=== PATIENT | female | born 1995 | race Caucasian/White ===

== ENCOUNTER 2019-09-12 17:57 | Emergency (ER) | payer BC ==
--- NOTE | 2019-09-12 18:24 | EDM.PDOC ---
ED HPI GENERAL MEDICAL PROBLEM - General Chief Complaint: Neuro Symptoms/Deficits Stated Complaint: facial tingling Time Seen by Provider: 09/12/19 18:03 Source of Information: Reports: Patient History Limitations: Reports: No Limitations - History of Present Illness INITIAL COMMENTS - FREE TEXT/NARRATIVE: She presents to the emergency department complaining of shortness of breath and tingling in her face. She feels like she just is not getting enough air. She denies cough at this time. She is breathing comfortably. No chest pain or tightness. 3 days ago she was seen by her primary provider with some complaints of cough and shortness of breath and was given an albuterol inhaler. She states she has only used it 3 times. She reports that the cough has resolved. She did feel feverish 3 days ago but none since then. Also had some sore throat which has resolved. No exposures to covid 19 that she is aware of. No travel out of the area. She is also complaining of tingling diffusely in her face. This started about an hour prior to arrival and has since resolved. She had additional some twitching in her left eye as well. No weakness. No speech difficulties. No difficulty understanding. No history of previous similar problems. - Related Data Allergies Allergy/AdvReac Type Severity Reaction Status Date / Time aspirin Allergy Nausea and Verified 09/12/19 17:59 Vomiting Home Meds: Home Meds Albuterol Sulfate [Albuterol Sulfate Hfa] 2 puff INH Q4HR PRN 09/12/19 [History] Benzonatate [Tessalon Perle] 100 mg PO Q4HR PRN 09/12/19 [History] Lisinopril [Zestril] 10 mg PO DAILY 09/12/19 [History] ED ROS GENERAL - Review of Systems Review Of Systems: See Below Constitutional: Denies: Fever, Chills HEENT: Denies: Eye Pain, Hearing Loss, Sinus Problem, Throat Pain Respiratory: Reports: Shortness of Breath. Denies: Wheezing, Cough Cardiovascular: Denies: Chest Pain, Palpitations Endocrine: Denies: Fatigue GI/Abdominal: Denies: Abdominal Pain, Diarrhea, Nausea, Vomiting : Denies: Dysuria, Frequency, Urgency Neurological: Reports: Numbness, Tingling. Denies: Confusion, Dizziness, Headache, Syncope, Trouble Speaking, Difficulty Walking, Weakness, Change in Speech Psychiatric: Denies: Anxiety, Confusion ED EXAM, GENERAL - Physical Exam Exam: See Below Exam Limited By: No Limitations General Appearance: Alert, WD/WN, No Apparent Distress Eye Exam: Bilateral Eye: EOMI, PERRL Ears: Normal External Exam, Normal Canal, Hearing Grossly Normal, Normal TMs Nose: Normal Inspection, No Blood Throat/Mouth: Normal Inspection, Normal Voice, No Airway Compromise Head: Atraumatic, Normocephalic Neck: Normal Inspection, Non-Tender Respiratory/Chest: No Respiratory Distress, Lungs Clear, Normal Breath Sounds, No Accessory Muscle Use Cardiovascular: Regular Rate, Rhythm, No Murmur Neurological: Alert, Oriented, CN II-XII Intact, Normal Cognition, Normal Gait, No Motor/Sensory Deficits, Other (Normal cerebellar function.) Skin Exam: Warm, Dry Course - Vital Signs Last Recorded V/S: Last Vital Signs Temp 37.1 C 09/12/19 18:00 Pulse 92 09/12/19 18:30 Resp 16 09/12/19 18:30 BP 145/103 H 09/12/19 18:30 Pulse Ox 100 09/12/19 18:30 Departure - Departure Time of Disposition: 18:25 Disposition: Home, Self-Care 01 Condition: Good Clinical Impression: Shortness of breath, Facial numbness - Discharge Information *PRESCRIPTION DRUG MONITORING PROGRAM REVIEWED*: No *COPY OF PRESCRIPTION DRUG MONITORING REPORT IN PATIENT CHRISTOPHER: No Instructions: Paresthesia, Shortness of Breath, Adult, [id number] Forms: ED Department Discharge Additional Instructions: Use the inhaler 4 times daily for the next 3 to 5 days. Push fluids. Follow-up with primary provider if symptoms continue. Sepsis Event Note - Focused Exam Date Exam was Performed: 09/13/19 Time Exam was Performed: 08:59 - Problem List Review Problem List Initiated/Reviewed/Updated: Yes - Assessment/Plan Plan: Discussed findings and treatment options. She is reassured that her lungs sound clear breathing is nonlabored and she has full oxygenation. Discussed that the tingling may be related to the use of the albuterol. Use the inhaler 4 times daily for the next 3 to 5 days. Push fluids. Follow-up with primary provider if symptoms continue.
== END 2019-09-12 18:36 | disposition home or self-care (01) ==
LOC: LL.ED 17:57
DX: R06.02 Shortness of breath (principal); R20.0 Anesthesia of skin; Z88.6 Allergy status to analgesic agent; Z79.899 Other long term (current) drug therapy
CPT/HCPCS: 99284

== ENCOUNTER 2020-10-07 19:05 | Observation (INO) | payer BC ==
[2020-10-07] MEDS ORDERED: Famotidine 20 MG/2 ML SDV IVPUSH ONE (19:16)
[2020-10-07] MEDS ORDERED: Metoprolol Tartrate 5 MG/5 ML SDV IVPUSH ONE ×2 (19:16→20:43)
--- NOTE | 2020-10-07 19:16 | EDM.PDOC ---
ED HPI GENERAL MEDICAL PROBLEM - General Chief Complaint: General Stated Complaint: CP Time Seen by Provider: 10/07/20 19:05 Source of Information: Reports: Patient, Old Records ([facility] EMR. No paper hospital chart available.) History Limitations: Reports: No Limitations - History of Present Illness INITIAL COMMENTS - FREE TEXT/NARRATIVE: The patient was brought to the emergency room via private automobile by her for evaluation of intermittent nonspecific 3/10 epigastric and retrosternal sharp chest pain with no history of radiation, and the episodes starting at about 2 PM this afternoon. The episodes last only a few seconds at a time. She has had several episodes since then, including shortly prior to arrival, however no chest pain at time of my exam. Her chest pain is associated with some nonspecific possible diaphoresis and borderline dyspnea with no medications or treatment prior to arrival. The patient denies any chest pressure, heart flutter, dizziness, orthostasis, orthopnea, diaphoresis, paresthesias, recent decreased exercise tolerance, or any other anginal-type symptoms. No recent history of abdominal pain, heartburn, nausea, diarrhea, melena, gross hematochezia, or any food intolerance, including fatty foods, etc.. with normal bowel movement earlier today. She denies any gross hematuria, colic, or with UTI symptoms, although some breakthrough menses today with normal LMP 2 weeks ago. She has had some nonspecific pelvic pain since changing her antihypertensive medications from lisinopril to Norvasc about 2 weeks ago. The patient also denies any recent fever, wheezing, etc., although chronic nonspecific cough during the last month with no known exposure to infection and no improvement of her cough since discontinuing her lisinopril. Onset: Today, Gradual Onset Date: 10/07/20 Onset Time: 14:00 Duration: Intermittent Location: Reports: Chest, Abdomen. Denies: Head, Face, Neck, Back, Pelvis, Upper Extremity, Left, Upper Extremity, Right, Lower Extremity, Left, Lower Extremity, Right, Generalized, Radiates to Quality: Reports: Sharp Severity: Mild Improves with: Reports: None Worsens with: Reports: None Context: Reports: Other (As above). Denies: Sick Contact, Trauma Associated Symptoms: Reports: Chest Pain, Cough, Diaphoresis, Shortness of Breath. 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 Denies: Allergic Rhinitis, Cataract, Glaucoma, Hard of Hearing, Impaired Vision, Macular Degeneration, Otitis Media, Retinal Detachment Cardiovascular History: Reports: Hypertension. Denies: Afib, Aneurysm, Arrhythmia, Blood Clots/VTE/DVT, CAD, Heart Failure, Heart Murmur, High Cholesterol, LA, PVD, Syncope Respiratory History: Reports: Asthma, Bronchitis, Recurrent. Denies: COPD, Intubation, Previous, PE, Pneumonia, Recurrent, Pneumothorax, Sleep Apnea, TB Gastrointestinal History: Reports: None. Denies: Celiac Disease, Cholelithiasis, Chronic Constipation, Chronic Diarrhea, Gastritis, GERD, GI Bleed, Inflammatory Bowel Disease, Irritable Bowel Syndrome, Jaundice, PUD Genitourinary History: Reports: None. Denies: Acute Renal Failure, Chronic Renal Insuffiency, Renal Calculus, Retention, Urinary, STD, Urinary Incontinence, UTI, Recurrent [employer] INSPECTOR History: Denies: Dysfunctional Uterine Bleeding, Endometriosis, Fibroids, , Spontaneous : 0 LMP (Approximate): Other (See Below) Other [employer] INSPECTOR History: Oligomenorrhea with current BCP therapy. Musculoskeletal History: Reports: None. Denies: Amputation, Arthritis, Back Pain, Chronic, Fracture, Gout, Neck Pain, Chronic, Osteoarthritis, RA, SLE Neurological History: Reports: None. Denies: Concussion, CVA, Headaches, Chronic, Head Trauma, Migraines, MS, Neuropathy, Peripheral, Parkinson's, Seizure, TIA, Vertigo Psychiatric History: Reports: Addiction, Anxiety, Depression, Other (See Below). Denies: Abuse, Victim of, ADD, ADHD, Psych Hospitalization(s), PTSD, Suicide Attempt, Suicidal Ideation Other Psychiatric History: Alcohol abuse since age 23. No previous alcohol treatment or DWIs. Endocrine/Metabolic History: Reports: Obesity/BMI 30+. Denies: Diabetes, Type I, Diabetes, Type II, Diabetes Mellitus, Type 3c, Hypothyroidism, IDDM Hematologic History: Reports: None. Denies: Anemia, Blood Transfusion(s), Iron Deficiency Immunologic History: Reports: None. Denies: AIDS, HIV, SLE Oncologic (Cancer) History: Reports: None. Denies: Basal Cell Carcinoma, Cervix, Colon, Hodgkin's Lymphoma, Leukemia, Lymphoma, Malignant Melanoma, Non- Hodgkin's Lymphoma, Ovarian, Squamous Cell Carcinoma, Uterine Dermatologic History: Reports: Eczema, Other (See Below). Denies: Psoriasis Other Dermatologic History: Probable benign 4.9 cm lipoma over the right lateral neck region by ultrasound in September 2020. - Infectious Disease History Infectious Disease History: Reports: None. Denies: C-Difficile, Chicken Pox, Measles, Meningitis, Mononucleosis, MRSA, Mumps, Novel Coronavirus, Pertussis (Whooping Cough), Rheumatic Fever, Rubella, Scarlet Fever, Shingles, TB, VRE - Past Surgical History Head Surgeries/Procedures: Reports: None HEENT Surgical History: Reports: Oral Surgery, Other (See Below). Denies: Adenoidectomy, Cataract Surgery, Eye Surgery, Laser Surgery, LASIK, Myringotomy w Tube(s), Naso-Sinus Surgery, Tonsillectomy Other HEENT Surgeries/Procedures: Tonsillectomy and adenoidectomy at age 13. [place] teeth extraction x4 at age 17. Additional tooth excision. Cardiovascular Surgical History: Reports: None. Denies: Varicose Respiratory Surgical History: Reports: None. Denies: Thoracentesis GI Surgical History: Denies: Appendectomy, Cholecystectomy, Colonoscopy, EGD, Hernia, Abdominal, Hernia, Inguinal, Hernia Repair/Other Female Surgical History: Reports: None. Denies: Breast Biopsy, D&C, Dilitation & Evacuation, Tubal Ligation Endocrine Surgical History: Reports: None. Denies: Thyroid Biopsy Neurological Surgical History: Reports: None. Denies: C-Spine, Discectomy, Laminectomy, Lumbar Spine, Sacral Spine, Spinal Fusion, Thoracic Spine, Vertebroplasty Musculoskeletal Surgical History: Reports: None. Denies: Arthroscopic Procedure, Carpal Tunnel, Ganglion Cyst, Joint Replacement, ORIF, Shoulder Surgery Oncologic Surgical History: Reports: None Dermatological Surgical History: Reports: None - Past Imaging History Past Imaging History: Reports: Ultrasound (Pelvic ultrasound in about 2017. Soft tissue ultrasound of the neck on 09/26/2020.) Social & Family History - Family History HEENT: Reports: None. Denies: Glaucoma, Macular Degeneration, Retinal Detachment Cardiac: Reports: CAD, Hypertension, LA, Other (See Below). Denies: Afib, Aneurysm, Arrhythmia, Blood Clots/VTE/DVT, Bypass, High Cholesterol, Pacemaker, Stent, Syncope Other Cardiac Family History: Maternal grandfather with LA in his 50s with subsequent LA however no procedures performed. Hypertension in maternal grandmother. Respiratory: Reports: Asthma, Sleep Apnea, Other (See Below). Denies: PE, Pneumothorax Other Respiratory Family Hisory: Asthma and dad and maternal uncle. Maternal grandfather with sleep apnea. GI: Reports: Cholelithiasis, Other (See Below). Denies: Celiac Disease, Colon Polyps, GERD, GI bleed, Inflammatory Bowel Disease, Irritable Bowel Syndrome, PUD Other GI Family History: Mother with cholelithiasis. : Reports: Renal Disease/Insufficiency, Other (See Below). Denies: Dialysis, Renal Calculus Other Family History: Mother with renal failure. OBGYN: Reports: Recurrent Spontaneous , Other (See Below). Denies: Dysfunctional uterine bleeding, Endometriosis, Fibroids Other OBGYN Family History: Mother with recurrent SABs. Musculoskeletal: Reports: None. Denies: Arthritis, Gout, RA, SLE Neurological: Reports: CVA, Migraines, Other (See Below). Denies: Alzheimers Disease, Cerebral Aneurysms, Dementia, MS, Parkinson's, Seizure, TIA Other Neurological Family History: Maternal great uncle with CVA x3. Mother with migraine headaches. Psychiatric: Reports: Anxiety, Depression, Psych Hospitalization(s), Suicide Attempt, Other (See Below). Denies: Abuse, Victim of, ADD, ADHD, PTSD Other Psychiatric Family History: Anxiety depression with suicidal attempts and half-sister requiring psychiatric hospitalizations x3. Maternal uncle with anxiety depression disorder and alcohol abuse. Endocrine/Metabolic: Reports: Hypothyroidism, Other (See Below). Denies: Diabetes, Gestational, Diabetes, Type I, Diabetes, type II, Diabetes Mellitus, Type 3c Other Endocrine/Metabolic Family History: Father with hypothyroidism. Hematologic: Reports: None. Denies: Anemia, SLE Immunologic: Reports: None. Denies: AIDS, HIV, SLE Dermatologic: Reports: Eczema. Denies: Psoriasis Other Dermatologic Family History: Father with eczema. Oncologic: Reports: Breast, Lung, Metastatic, Ovarian, Skin, Thyroid, Other (See Below). Denies: Cervix, Colon, Lymphoma, Non-Hodgkin's Lymphoma, Uterine Other Oncologic Family History: Mother with ovarian cancer with breast metastases in her 30s. Paternal grandmother with ovarian cancer in her 60s. Maternal grandfather with unknown type of skin cancer. Maternal great uncle with lung cancer and thyroid cancer. - Tobacco Use Tobacco Use Status *Q: Never Tobacco User Tobacco Use Within Last Twelve Months: No Used Tobacco, but Quit: No Smoking Cessation Information Provided To Patient: No Second Hand Smoke Exposure: Yes Source of Second Hand Smoke Exposure: and roommate Second Hand Smoke Education Provided: Yes - Caffeine Use Caffeine Use: Reports: None. Denies: Coffee, Energy Drinks, Soda, Tea - Alcohol Use Alcohol Use History: Yes Days Per Week of Alcohol Use: 7 Number of Drinks Per Day: 6 Number of Drinks Per Day Comment: Mixed drinks. Alcohol abuse since 23 years of age as above. Total Drinks Per Week: 42 Date of Last Drink: 10/07/20 Time of Last Drink: 11:00 Alcohol Use in Last Twelve Months: Yes - Recreational Drug Use Recreational Drug Use: No Drug Use in Last 12 Months: No Recreational Drug Type: Denies: Amphetamines (Speed), Cocaine, Heroin, Inhalants (Glues, Solvents, Aerosols), LSD (Acid), Marijuana/Hashish, Methamphetamine, Morphine, Oxycodone - Living Situation & Occupation Living situation: Reports: (09/15/2020), with Family ( and male roommate) Occupation: Unemployed ED ROS GENERAL - Review of Systems Review Of Systems: Comprehensive ROS is negative, except as noted in HPI. ED EXAM, GENERAL - Physical Exam Exam: See Below Exam Limited By: No Limitations General Appearance: Alert, WD/WN, No Apparent Distress, Anxious (Moderate) Eye Exam: Bilateral Eye: EOMI, Normal Inspection (No vertigo or nystagmus), PERRL Ears: Normal External Exam, Normal Canal, Hearing Grossly Normal, Normal TMs Nose: Normal Inspection, Normal Mucosa, No Blood Throat/Mouth: Normal Inspection, Normal Lips, Normal Teeth, Normal Gums, Normal Oropharynx, Normal Voice, No Airway Compromise. No: Dysphagia, Perioral Cyanosis Head: Atraumatic, Normocephalic. No: Facial Swelling, Facial Tenderness, Sinus Tenderness Neck: Supple, Non-Tender, Full Range of Motion, Other (3 cm in diameter probable lipoma in the right lateral anterior cervical region with no local inflammation, tenderness, etc.). No: Carotid Bruit, Lymphadenopathy (L), Lymphadenopathy (R), Thyromegaly Respiratory/Chest: No Respiratory Distress, Lungs Clear, Normal Breath Sounds, No Accessory Muscle Use, Chest Non-Tender. No: Pleural Rub, Retractions Cardiovascular: Normal Peripheral Pulses, No Edema, No Gallop, No JVD, No Murmur, No Rub, Tachycardia (Regular rhythm). No: Gallop/S3, Gallop/S4, Friction Rub Peripheral Pulses: 2+: Radial (L), Radial (R), Dorsalis Pedis (L), Dorsalis Pedis (R) GI/Abdominal: Normal Bowel Sounds, Soft, Non-Tender, No Organomegaly, No Distention, No Abnormal Bruit, No Mass, Pelvis Stable, Other (Obese). No: Guarding (Female) Exam: Deferred Rectal (Female) Exam: Deferred Back Exam: Normal Inspection, Full Range of Motion. No: CVA Tenderness (L), CVA Tenderness (R), Muscle Spasm Extremities: Normal Inspection, Normal Range of Motion, Non-Tender, No Pedal Edema, Normal Capillary Refill. No: Lyudmila's Sign Neurological: Alert, Oriented, CN II-XII Intact, Normal Cognition, Normal Gait, Normal Reflexes, No Motor/Sensory Deficits Psychiatric: Anxious (Moderate), Depressed Mood (Borderline) Skin Exam: Warm, Dry, Intact, Normal Color, No Rash, Stud(s) (Multiple including auricles bilaterally and left lateral nose), Tattoo(s) (Multiple). No: Diaphoretic Lymphatic: No Adenopathy #1 Interpretation EKG Date: 10/07/20 Time: 20:13 Rhythm: NSR Rate (Beats/Min): 100 [place]: Normal P-Wave: Enlarged (Mild diffuse biphasic P waves) QRS: Normal (0.08 seconds) ST-T: Normal (T wave inversion in lead V1) QT: Normal [place]/PQ Interval: 0.17 seconds. Comparison: NA - No Prior EKG EKG Interpretation Comments: 1. No acute ischemic changes 2. Left atrial enlargement Course - Vital Signs Last Recorded V/S: Last Vital Signs Temp 36.6 C 10/07/20 19:16 Pulse 100 10/07/20 21:21 Resp 20 10/07/20 21:21 BP 181/129 H 10/07/20 21:21 Pulse Ox 100 10/07/20 21:21 Vital Signs - 24 hr 10/07/20 10/07/20 10/07/20 19:06 19:15 19:16 Temperature [ 36.1 C 36.6 C Temporal] Pulse, Peripheral Pulse, 120 H 113 H 112 H Peripheral [ Pulse Oximetry] Respiratory 18 27 H 23 H Rate Blood Pressure Blood Pressure 188/139 H 159/119 H 159/119 H [Left Arm] O2 Sat by Pulse 99 100 100 Oximetry 10/07/20 10/07/20 10/07/20 19:30 19:34 19:40 Temperature [ Temporal] Pulse, 117 H Peripheral Pulse, 103 H 100 Peripheral [ Pulse Oximetry] Respiratory 24 H 21 H Rate Blood Pressure 159/119 H Blood Pressure 178/135 H 163/126 H [Left Arm] O2 Sat by Pulse Oximetry 10/07/20 10/07/20 10/07/20 19:53 19:59 20:10 Temperature [ Temporal] Pulse, Peripheral Pulse, 114 H 100 Peripheral [ Pulse Oximetry] Respiratory 23 H 26 H Rate Blood Pressure 163/126 H Blood Pressure 116/67 123/88 [Left Arm] O2 Sat by Pulse 100 100 Oximetry 10/07/20 10/07/20 20:35 20:41 Temperature [ Temporal] Pulse, Peripheral Pulse, 105 H 102 H Peripheral [ Pulse Oximetry] Respiratory 25 H 19 Rate Blood Pressure Blood Pressure 159/114 H 166/116 H [Left Arm] O2 Sat by Pulse 100 100 Oximetry - Orders/Labs/Meds Orders: Active Orders 24 hr Category Date Time Status Cardiac Monitoring [RC] . DIRECTED Care 10/07/20 19:16 Active EKG Documentation Completion [RC] ASDIRECTED Care 10/07/20 19:16 Active Oxygen Therapy, ED [RC] PRN Care 10/07/20 19:16 Active Peripheral IV Care [RC] . DIRECTED Care 10/07/20 19:16 Active Pulse Oximetry [RC] CONTINUOUS Care 10/07/20 19:16 Active Up With Assistance [RC] PFP Care 10/07/20 19:16 Active Vital Signs [RC] PFP Care 10/07/20 19:16 Active Nothing per Oral Now Diet [DIET] Diet 10/07/20 Breakfast Active Chest 1V Frontal [CR] Stat Exams 10/07/20 19:16 Taken CULTURE BLOOD [BC] Stat Lab 10/07/20 20:26 Received CULTURE BLOOD [BC] Stat Lab 10/07/20 20:31 Received CULTURE URINE [RM] Routine Lab 10/07/20 20:16 Received Nitroglycerin [Nitrostat] Med 10/07/20 19:50 Stat 0.4 mg SL ONETIME STA Sodium Chloride 0.9% [Saline Flush] Med 10/07/20 19:16 Active 10 ml FLUSH ASDIRECTED PRN Blood Culture x2 Reflex Set [OM.PC] Urgent Oth 10/07/20 20:11 Ordered Isolation [COMM] Routine Oth 10/07/20 19:45 Active Obtain Past Medical Record [OM.PC] Urgent Oth 10/07/20 19:16 Active Peripheral IV Insertion Adult [OM.PC] Stat Oth 10/07/20 19:16 Ordered Resuscitation Status Stat Resus Stat 10/07/20 19:16 Ordered Medication Orders Nitroglycerin (Nitroglycerin 0.4 Mg Tab.Sl) 0.4 mg SL ONETIME STA Stop: 10/08/20 19:51 Last Admin: 10/07/20 19:53 Dose: 0.4 mg Documented by: YAMEL Sodium Chloride (Sodium Chloride 0.9% 10 Ml Syringe) 10 ml FLUSH ASDIRECTED PRN PRN Reason: Keep Vein Open Last Admin: 10/07/20 19:49 Dose: 10 ml Documented by: Admin: 10/07/20 19:35 Dose: 10 ml Documented by: YAMEL Labs: Laboratory Tests 10/07/20 10/07/20 10/07/20 Range/Units 19:31 19:31 19:31 WBC 9.9 (4.0-10.2) K/uL RBC 3.68 L (3.77-5.09) M/uL Hgb 13.7 (11.7-15.5) g/dL Hct 39.3 (34.0-46.0) % MCV 106.8 H (84.0-98.0) fL MCH 37.2 H (28.2-33.3) pg MCHC 34.9 (31.7-36.0) g/dL RDW 12.6 (11.2-14.1) % Plt Count 282 (150-350) K/uL Neut % (Auto) 68.3 (45.0-80.0) % Lymph % (Auto) 22.3 (10.0-50.0) % [place] % (Auto) 8.4 (2.0-14.0) % Eos % (Auto) 0.6 (0.0-5.0) % Baso % (Auto) 0.4 (0.0-2.0) % Neut # (Auto) 6.79 (1.40-7.00) K/uL Lymph # (Auto) 2.21 (0.50-3.50) K/uL [place] # (Auto) 0.83 (0.00-1.00) K/uL Eos # (Auto) 0.06 (0.00-0.50) K/uL Baso # (Auto) 0.04 (0.00-0.20) K/uL PT 10.4 (9.5-12.0) SEC INR 1.0 APTT 23.7 L (24.5-32.8) SEC D-Dimer, Quantitative < 100 (0-400) ng/mL Sodium (136-145) mmol/L Potassium (3.5-5.1) mmol/L Chloride (98-107) mmol/L Carbon Dioxide (21.0-32.0) mmol/L BUN (7-18) mg/dL Creatinine (0.51-1.17) mg/dL Est Cr Clr Drug Dosing mL/min Estimated GFR (MDRD) mL/min Glucose (70-99) mg/dL Lactic Acid (0.4-2.0) mmol/L Uric Acid (2.6-7.2) mg/dL Calcium (8.5-10.1) mg/dL Magnesium (1.8-2.4) mg/dL Total Bilirubin (0.2-1.0) mg/dL Direct Bilirubin (0.0-0.2) mg/dL Indirect Bilirubin AST (15-37) U/L ALT (12-78) U/L Alkaline Phosphatase (46-116) IU/L Creatine Kinase (26-308) U/L Creatine Kinase Index (0.0-2.5) % CK-MB (CK-2) (0.00-3.60) ng/mL Troponin I (0.000-0.056) ng/mL NT-Pro-B Natriuret Pep (0-125) pg/mL Total Protein (6.4-8.2) g/dL Albumin (3.4-5.0) g/dL TSH, Ultra Sensitive (0.358-3.740) mIU/mL HCG, Qual (NEGATIVE) Specimen Type Urine Color Urine Appearance Urine pH (5.0-9.0) Ur Specific [place] (1.005-1.030) Urine Protein (NEGATIVE) mg/dL Urine Glucose (UA) (NEGATIVE) mg/dL Urine Ketones (NEGATIVE) mg/dL Urine Occult Blood (NEGATIVE) Urine Nitrite (NEGATIVE) Urine Bilirubin (NEGATIVE) Urine Urobilinogen (0.2-1.0) E.U./dL Ur Leukocyte Esterase (NEGATIVE) U Hyaline Cast (Auto) Urine RBC /HPF Urine WBC /HPF Ur Epithelial Cells /LPF Amorphous Sediment (0/HPF) /HPF Urine Bacteria (NONE TO FEW) /HPF Urine Mucus (NEGATIVE) /LPF Ethyl Alcohol (0.000-0.080) g/dL SARS-CoV-2 RNA (NHAN) (NEGATIVE) 10/07/20 10/07/20 10/07/20 Range/Units 19:31 19:31 19:31 WBC (4.0-10.2) K/uL RBC (3.77-5.09) M/uL Hgb (11.7-15.5) g/dL Hct (34.0-46.0) % MCV (84.0-98.0) fL MCH (28.2-33.3) pg MCHC (31.7-36.0) g/dL RDW (11.2-14.1) % Plt Count (150-350) K/uL Neut % (Auto) (45.0-80.0) % Lymph % (Auto) (10.0-50.0) % [place] % (Auto) (2.0-14.0) % Eos % (Auto) (0.0-5.0) % Baso % (Auto) (0.0-2.0) % Neut # (Auto) (1.40-7.00) K/uL Lymph # (Auto) (0.50-3.50) K/uL [place] # (Auto) (0.00-1.00) K/uL Eos # (Auto) (0.00-0.50) K/uL Baso # (Auto) (0.00-0.20) K/uL PT (9.5-12.0) SEC INR APTT (24.5-32.8) SEC D-Dimer, Quantitative (0-400) ng/mL Sodium 138 (136-145) mmol/L Potassium 3.6 (3.5-5.1) mmol/L Chloride 99 (98-107) mmol/L Carbon Dioxide 22.3 (21.0-32.0) mmol/L BUN 9 (7-18) mg/dL Creatinine 0.66 (0.51-1.17) mg/dL Est Cr Clr Drug Dosing 113.50 mL/min Estimated GFR (MDRD) > 60 mL/min Glucose 115 H (70-99) mg/dL Lactic Acid 3.5 H (0.4-2.0) mmol/L Uric Acid 6.8 (2.6-7.2) mg/dL Calcium 8.8 (8.5-10.1) mg/dL Magnesium 1.2 L (1.8-2.4) mg/dL Total Bilirubin 1.8 H (0.2-1.0) mg/dL Direct Bilirubin (0.0-0.2) mg/dL Indirect Bilirubin AST 188 H (15-37) U/L ALT 71 (12-78) U/L Alkaline Phosphatase 75 (46-116) IU/L Creatine Kinase 57 (26-308) U/L Creatine Kinase Index 0.9 (0.0-2.5) % CK-MB (CK-2) 0.50 (0.00-3.60) ng/mL Troponin I 0.000 (0.000-0.056) ng/mL NT-Pro-B Natriuret Pep 42 (0-125) pg/mL Total Protein 7.5 (6.4-8.2) g/dL Albumin 3.7 (3.4-5.0) g/dL TSH, Ultra Sensitive 9.427 H (0.358-3.740) mIU/mL HCG, Qual Negative (NEGATIVE) Specimen Type Urine Color Urine Appearance Urine pH (5.0-9.0) Ur Specific [place] (1.005-1.030) Urine Protein (NEGATIVE) mg/dL Urine Glucose (UA) (NEGATIVE) mg/dL Urine Ketones (NEGATIVE) mg/dL Urine Occult Blood (NEGATIVE) Urine Nitrite (NEGATIVE) Urine Bilirubin (NEGATIVE) Urine Urobilinogen (0.2-1.0) E.U./dL Ur Leukocyte Esterase (NEGATIVE) U Hyaline Cast (Auto) Urine RBC /HPF Urine WBC /HPF Ur Epithelial Cells /LPF Amorphous Sediment (0/HPF) /HPF Urine Bacteria (NONE TO FEW) /HPF Urine Mucus (NEGATIVE) /LPF Ethyl Alcohol (0.000-0.080) g/dL SARS-CoV-2 RNA (NHAN) (NEGATIVE) 10/07/20 10/07/20 10/07/20 Range/Units 19:31 19:31 19:47 WBC (4.0-10.2) K/uL RBC (3.77-5.09) M/uL Hgb (11.7-15.5) g/dL Hct (34.0-46.0) % MCV (84.0-98.0) fL MCH (28.2-33.3) pg MCHC (31.7-36.0) g/dL RDW (11.2-14.1) % Plt Count (150-350) K/uL Neut % (Auto) (45.0-80.0) % Lymph % (Auto) (10.0-50.0) % [place] % (Auto) (2.0-14.0) % Eos % (Auto) (0.0-5.0) % Baso % (Auto) (0.0-2.0) % Neut # (Auto) (1.40-7.00) K/uL Lymph # (Auto) (0.50-3.50) K/uL [place] # (Auto) (0.00-1.00) K/uL Eos # (Auto) (0.00-0.50) K/uL Baso # (Auto) (0.00-0.20) K/uL PT (9.5-12.0) SEC INR APTT (24.5-32.8) SEC D-Dimer, Quantitative (0-400) ng/mL Sodium (136-145) mmol/L Potassium (3.5-5.1) mmol/L Chloride (98-107) mmol/L Carbon Dioxide (21.0-32.0) mmol/L BUN (7-18) mg/dL Creatinine (0.51-1.17) mg/dL Est Cr Clr Drug Dosing mL/min Estimated GFR (MDRD) mL/min Glucose (70-99) mg/dL Lactic Acid (0.4-2.0) mmol/L Uric Acid (2.6-7.2) mg/dL Calcium (8.5-10.1) mg/dL Magnesium (1.8-2.4) mg/dL Total Bilirubin 1.8 H (0.2-1.0) mg/dL Direct Bilirubin 1.1 H (0.0-0.2) mg/dL Indirect Bilirubin 0.7 AST (15-37) U/L ALT (12-78) U/L Alkaline Phosphatase (46-116) IU/L Creatine Kinase (26-308) U/L Creatine Kinase Index (0.0-2.5) % CK-MB (CK-2) (0.00-3.60) ng/mL Troponin I (0.000-0.056) ng/mL NT-Pro-B Natriuret Pep (0-125) pg/mL Total Protein (6.4-8.2) g/dL Albumin (3.4-5.0) g/dL TSH, Ultra Sensitive (0.358-3.740) mIU/mL HCG, Qual (NEGATIVE) Specimen Type Urine Color Urine Appearance Urine pH (5.0-9.0) Ur Specific [place] (1.005-1.030) Urine Protein (NEGATIVE) mg/dL Urine Glucose (UA) (NEGATIVE) mg/dL Urine Ketones (NEGATIVE) mg/dL Urine Occult Blood (NEGATIVE) Urine Nitrite (NEGATIVE) Urine Bilirubin (NEGATIVE) Urine Urobilinogen (0.2-1.0) E.U./dL Ur Leukocyte Esterase (NEGATIVE) U Hyaline Cast (Auto) Urine RBC /HPF Urine WBC /HPF Ur Epithelial Cells /LPF Amorphous Sediment (0/HPF) /HPF Urine Bacteria (NONE TO FEW) /HPF Urine Mucus (NEGATIVE) /LPF Ethyl Alcohol 0.001 (0.000-0.080) g/dL SARS-CoV-2 RNA (NHAN) Negative (NEGATIVE) 10/07/20 Range/Units 20:16 WBC (4.0-10.2) K/uL RBC (3.77-5.09) M/uL Hgb (11.7-15.5) g/dL Hct (34.0-46.0) % MCV (84.0-98.0) fL MCH (28.2-33.3) pg MCHC (31.7-36.0) g/dL RDW (11.2-14.1) % Plt Count (150-350) K/uL Neut % (Auto) (45.0-80.0) % Lymph % (Auto) (10.0-50.0) % [place] % (Auto) (2.0-14.0) % Eos % (Auto) (0.0-5.0) % Baso % (Auto) (0.0-2.0) % Neut # (Auto) (1.40-7.00) K/uL Lymph # (Auto) (0.50-3.50) K/uL [place] # (Auto) (0.00-1.00) K/uL Eos # (Auto) (0.00-0.50) K/uL Baso # (Auto) (0.00-0.20) K/uL PT (9.5-12.0) SEC INR APTT (24.5-32.8) SEC D-Dimer, Quantitative (0-400) ng/mL Sodium (136-145) mmol/L Potassium (3.5-5.1) mmol/L Chloride (98-107) mmol/L Carbon Dioxide (21.0-32.0) mmol/L BUN (7-18) mg/dL Creatinine (0.51-1.17) mg/dL Est Cr Clr Drug Dosing mL/min Estimated GFR (MDRD) mL/min Glucose (70-99) mg/dL Lactic Acid (0.4-2.0) mmol/L Uric Acid (2.6-7.2) mg/dL Calcium (8.5-10.1) mg/dL Magnesium (1.8-2.4) mg/dL Total Bilirubin (0.2-1.0) mg/dL Direct Bilirubin (0.0-0.2) mg/dL Indirect Bilirubin AST (15-37) U/L ALT (12-78) U/L Alkaline Phosphatase (46-116) IU/L Creatine Kinase (26-308) U/L Creatine Kinase Index (0.0-2.5) % CK-MB (CK-2) (0.00-3.60) ng/mL Troponin I (0.000-0.056) ng/mL NT-Pro-B Natriuret Pep (0-125) pg/mL Total Protein (6.4-8.2) g/dL Albumin (3.4-5.0) g/dL TSH, Ultra Sensitive (0.358-3.740) mIU/mL HCG, Qual (NEGATIVE) Specimen Type Urincc Urine Color Dark yellow Urine Appearance Cloudy Urine pH 6.0 (5.0-9.0) Ur Specific [place] 1.025 (1.005-1.030) Urine Protein 30 H (NEGATIVE) mg/dL Urine Glucose (UA) Negative (NEGATIVE) mg/dL Urine Ketones Trace H (NEGATIVE) mg/dL Urine Occult Blood Large H (NEGATIVE) Urine Nitrite Negative (NEGATIVE) Urine Bilirubin Moderate H (NEGATIVE) Urine Urobilinogen 2.0 H (0.2-1.0) E.U./dL Ur Leukocyte Esterase Negative (NEGATIVE) U Hyaline Cast (Auto) Occasional Urine RBC 20-30 H /HPF Urine WBC 0-5 /HPF Ur Epithelial Cells Many H /LPF Amorphous Sediment Occasional (0/HPF) /HPF Urine Bacteria Rare (NONE TO FEW) /HPF Urine Mucus Few H (NEGATIVE) /LPF Ethyl Alcohol (0.000-0.080) g/dL SARS-CoV-2 RNA (NHAN) (NEGATIVE) No current menses with urine specimen set up for culture and sensitivity Blood cultures x2 were collected Microbiology 10/07/20 19:46 Influenza Type A Antigen Screen - Final Nasal, Unspecified NEGATIVE INFLUENZA A VIRUS AG REFERENCE RANGE: NEGATIVE Influenza Type B Antigen Screen - Final NEGATIVE INFLUENZA B VIRUS AG REFERENCE RANGE: NEGATIVE Meds: Medications Generic Name Dose Route Start Last Admin Trade Name Freq PRN Reason Stop Dose Admin Nitroglycerin 0.4 mg 10/07/20 19:50 10/07/20 19:53 Nitroglycerin 0.4 Mg Tab.Sl SL 10/08/20 19:51 0.4 mg ONETIME STA Administration Sodium Chloride 10 ml 10/07/20 19:16 10/07/20 19:49 Sodium Chloride 0.9% 10 Ml Syringe FLUSH 10 ml ASDIRECTED PRN Administration Keep Vein Open Discontinued Medications Generic Name Dose Route Start Last Admin Trade Name Freq PRN Reason Stop Dose Admin Famotidine 40 mg 10/07/20 19:16 10/07/20 19:39 Famotidine 20 Mg/2 Ml Sdv IVPUSH 10/07/20 19:17 40 mg ONETIME ONE Administration Lactated Ringer's 1,000 mls @ 999 mls/hr 10/07/20 20:11 10/07/20 20:13 Ringers, Lactated IV 10/07/20 21:11 999 mls/hr .BOLUS ONE Administration Magnesium Oxide 800 mg 10/07/20 20:12 10/07/20 20:23 Magnesium Oxide 400 Mg Tab PO 10/07/20 20:13 800 mg ONETIME ONE Administration Metoprolol Tartrate 2.5 mg 10/07/20 19:16 10/07/20 19:34 Metoprolol Tartrate 5 Mg/5 Ml Sdv IVPUSH 10/07/20 19:17 2.5 mg ONETIME ONE Administration Metoprolol Tartrate 2.5 mg 10/07/20 20:43 10/07/20 21:10 Metoprolol Tartrate 5 Mg/5 Ml Sdv IVPUSH 10/07/20 20:44 2.5 mg ONETIME ONE Administration Metoprolol Tartrate 25 mg 10/07/20 20:43 10/07/20 21:08 Metoprolol Tartrate 50 Mg Tab PO 10/07/20 20:44 25 mg ONETIME ONE Administration - Radiology Interpretation Free Text/Narrative:: 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 Subsequent improvement to the 90s however mild recurrence of tachycardia to the [id number] prior to admission. Chest x-ray, portable, shows somewhat poor inspiratory film with mild pulmonary obstructive disease without pneumothorax, pulmonary infiltrates, pneumothorax, cardiomegaly, CHF, etc. Departure - Departure Time of Disposition: 21:15 Disposition: Refer to Observation Condition: Good Clinical Impression: Mixed anxiety depressive disorder, Hypomagnesemia, Hypothyroidism (acquired), Obesity (BMI 30-39.9), Macrocytosis, Lactic acid increased, Elevated LFTs Chest pain Qualifiers: Chest pain type: precordial pain Qualified Code(s): R07.2 - Precordial pain Asthma Qualifiers: Asthma severity: mild Asthma persistence: intermittent Asthma complication type: uncomplicated Qualified Code(s): J45.20 - Mild intermittent asthma, uncomplicated Hypertension Qualifiers: Hypertension type: essential hypertension Qualified Code(s): I10 - Essential (primary) hypertension - Discharge Information *PRESCRIPTION DRUG MONITORING PROGRAM REVIEWED*: Not Applicable *COPY OF PRESCRIPTION DRUG MONITORING REPORT IN PATIENT CHRISTOPHER: Not Applicable Sepsis Event Note (ED) - Evaluation Sepsis Screening Result: No Definite Risk - Focused Exam Vital Signs: Vital Signs Temp Pulse Pulse Resp BP BP Pulse Ox 10/07/20 20:41 102 H 19 166/116 H 100 10/07/20 20:35 105 H 25 H 159/114 H 100 10/07/20 20:10 100 26 H 123/88 100 10/07/20 19:59 114 H 23 H 116/67 100 10/07/20 19:53 163/126 H 10/07/20 19:40 100 21 H 163/126 H 10/07/20 19:34 117 H 159/119 H 10/07/20 19:30 103 H 24 H 178/135 H 10/07/20 19:16 36.6 C 112 H 23 H 159/119 H 100 10/07/20 19:15 113 H 27 H 159/119 H 100 10/07/20 19:06 36.1 C 120 H 18 188/139 H 99 - Problem List & Annotations (1) Chest pain SNOMED Code(s): 13495155 Code(s): R07.9 - CHEST PAIN, UNSPECIFIED Status: Acute Priority: High Current Visit: Yes Onset Date: 10/07/20 Annotation/Comment:: Atypical chest pain. Chest pain protocol was not initiated upon patient's arrival secondary to absence of symptoms at time of my exam. Initiate standard rule out LA orders. Cardiology consultations depending on her clinical course. Sublingual nitroglycerin was used for blood pressure control with excellent results. Note moderate tachycardia with history of alcohol abuse, anxiety, etc. as below with overall good results with 2.5 mg of IV Lopressor. Qualifiers: Chest pain type: precordial pain Qualified Code(s): R07.2 - Precordial pain (2) Hypertension SNOMED Code(s): 65337158 Code(s): I10 - ESSENTIAL (PRIMARY) HYPERTENSION Status: Chronic Priority: High Current Visit: Yes Annotation/Comment:: Hypertension recently under poor control and somewhat refractory to therapy despite aggressive treatment in our emergency room prior to admission. Strong anxiety component with no evidence of DTs, although oral Ativan will be initiated shortly after admission. Consider IV Normodyne shortly after admission with oral and IV Lopressor given in the emergency room as above. Qualifiers: Hypertension type: essential hypertension Qualified Code(s): I10 - Essential (primary) hypertension (3) Lactic acid increased SNOMED Code(s): 02767918 Code(s): E87.2 - ACIDOSIS Status: Acute Priority: High Current Visit: Yes Onset Date: 10/07/20 Annotation/Comment:: No leukocytosis or fever however moderately elevated lactic acid level. Lactic acid protocol and order set to be initiated after admission. Blood cultures x2 were collected. No evidence of pneumonia by chest x-ray. UA also ordered with results as above. No indication of antibiotic therapy at this time. (4) Asthma SNOMED Code(s): 792223631 Code(s): J45.909 - UNSPECIFIED ASTHMA, UNCOMPLICATED Status: Chronic Priority: Medium Current Visit: Yes Annotation/Comment:: No recent fever or bronchitic type symptoms despite elevated lactic acid level as above. No bronch itis or pneumonia by clinical exam or today's chest x-ray. Observe for now. Qualifiers: Asthma severity: mild Asthma persistence: intermittent Asthma complication type: uncomplicated Qualified Code(s): J45.20 - Mild intermittent asthma, uncomplicated (5) Elevated LFTs SNOMED Code(s): 877862513 Code(s): R79.89 - OTHER SPECIFIED ABNORMAL FINDINGS OF BLOOD CHEMISTRY Status: Acute Priority: Medium Current Visit: Yes Onset Date: 10/07/20 Annotation/Comment:: LFTs elevation possibly secondary to her obesity, alcohol use, etc. Note hyperbilirubinemia. Further work-up depending on her clinical course. No known exposure to hepatitis, etc. (6) Hypomagnesemia SNOMED Code(s): 622039423 Code(s): E83.42 - HYPOMAGNESEMIA Status: Acute Priority: High Current Visit: Yes Onset Date: 10/07/20 Annotation/Comment:: High-dose magnesium oxide given orally in the emergency room with subsequent infusion of IV magnesium sulfate after completion of 1 L IV bolus of lactated Ringer's as above. (7) Hypothyroidism (acquired) SNOMED Code(s): 183163944 Code(s): E03.9 - HYPOTHYROIDISM, UNSPECIFIED Status: Acute Priority: High Current Visit: Yes Onset Date: 10/07/20 Annotation/Comment:: Elevated TSH. Initiate low-dose Synthroid after admission with TSH to be repeated by her regular provider in about 4 weeks. (8) Macrocytosis SNOMED Code(s): 572188422 Code(s): D75.89 - OTHER SPECIFIED DISEASES OF BLOOD AND BLOOD-FORMING ORGANS Status: Acute Priority: High Current Visit: Yes Onset Date: 10/07/20 Annotation/Comment:: Note alcohol abuse history. Thiamine, vitamin B12, iron studies, and folic acid level to be conducted in the a.m. with initiation of oral thiamine after these have been collected. (9) Mixed anxiety depressive disorder SNOMED Code(s): 053444589 Code(s): F41.8 - OTHER SPECIFIED ANXIETY DISORDERS Status: Acute Priority: High Current Visit: Yes Annotation/Comment:: Moderate control based on today's exam. Note alcohol abuse history during the last couple of years. (10) Obesity (BMI 30-39.9) SNOMED Code(s): 290042394, 328293062 Code(s): E66.9 - OBESITY, UNSPECIFIED Status: Chronic Priority: High Current Visit: Yes Annotation/Comment:: Weight loss in moderation is advisable. Note hypothyroidism as above. Lipid profile and glycosylated hemoglobin in the a.m. - Problem List Review Problem List Initiated/Reviewed/Updated: Yes - My Orders Last 24 Hours: My Active Orders 10/07/20 Breakfast Nothing per Oral Now Diet [DIET] 10/07/20 19:16 Cardiac Monitoring [RC] . DIRECTED EKG Documentation Completion [RC] ASDIRECTED Oxygen Therapy, ED [RC] PRN Peripheral IV Care [RC] . DIRECTED Pulse Oximetry [RC] CONTINUOUS Up With Assistance [RC] PFP Vital Signs [RC] PFP Chest 1V Frontal [CR] Stat Sodium Chloride 0.9% [Saline Flush] 10 ml FLUSH ASDIRECTED PRN Obtain Past Medical Record [OM.PC] Urgent Peripheral IV Insertion Adult [OM.PC] Stat Resuscitation Status Stat 10/07/20 19:45 Isolation [COMM] Routine 10/07/20 19:50 Nitroglycerin [Nitrostat] 0.4 mg SL ONETIME STA 10/07/20 20:11 Blood Culture x2 Reflex Set [OM.PC] Urgent 10/07/20 20:16 CULTURE URINE [RM] Routine 10/07/20 20:26 CULTURE BLOOD [BC] Stat 10/07/20 20:31 CULTURE BLOOD [BC] Stat - Assessment/Plan Admission H&P: Please use this note as an admission H&P Last 24 Hours: My Active Orders 10/07/20 Breakfast Nothing per Oral Now Diet [DIET] 10/07/20 19:16 Cardiac Monitoring [RC] . DIRECTED EKG Documentation Completion [RC] ASDIRECTED Oxygen Therapy, ED [RC] PRN Peripheral IV Care [RC] . DIRECTED Pulse Oximetry [RC] CONTINUOUS Up With Assistance [RC] PFP Vital Signs [RC] PFP Chest 1V Frontal [CR] Stat Sodium Chloride 0.9% [Saline Flush] 10 ml FLUSH ASDIRECTED PRN Obtain Past Medical Record [OM.PC] Urgent Peripheral IV Insertion Adult [OM.PC] Stat Resuscitation Status Stat 10/07/20 19:45 Isolation [COMM] Routine 10/07/20 19:50 Nitroglycerin [Nitrostat] 0.4 mg SL ONETIME STA 10/07/20 20:11 Blood Culture x2 Reflex Set [OM.PC] Urgent 10/07/20 20:16 CULTURE URINE [RM] Routine 10/07/20 20:26 CULTURE BLOOD [BC] Stat 10/07/20 20:31 CULTURE BLOOD [BC] Stat Assessment:: As above Plan: As above. Extensive precautions were given to the patient and her , who are in agreement with the treatment plan. The patient's condition is stable enough for observation status and general supervision.
[2020-10-07] MEDS: Sodium Chloride 0.9% 10 ML Syringe FLUSH PRN ×2 (19:35→19:49)
[2020-10-07] MEDS ORDERED: Nitroglycerin 0.4 MG Tab.SL SL STA (19:50)
[2020-10-07 20:05] LABS: CHLORIDE,CL 99 mmol/L (98-107); SODIUM,NA 138 mmol/L (136-145)
[2020-10-07 20:10] LABS: PTT,PARTIAL THROMBOPLSTIN TIME 23.7 SEC (24.5-32.8)
[2020-10-07] MEDS ORDERED: Lactated Ringers 1,000 ML IV ONE (20:11)
[2020-10-07] MEDS ORDERED: Magnesium Oxide 400 MG Tab PO ONE (20:12)
[2020-10-07] MEDS ORDERED: Metoprolol Tartrate 50 MG Tab PO ONE (20:43)
[2020-10-07] MEDS ORDERED: Albuterol 6.7 GM Inhaler INH PRN (21:30)
[2020-10-07] MEDS ORDERED: Sodium Chloride 0.9% 10 ML Syringe FLUSH PRN (21:31)
[2020-10-07] MEDS ORDERED: Temazepam 15 MG Cap PO PRN (21:31)
[2020-10-07] MEDS ORDERED: Acetaminophen 325 MG Tab PO PRN (21:31)
[2020-10-07] MEDS ORDERED: Magnesium Sulfate/Water 4 GM/100 ML BAG IV ONE (21:35)
[2020-10-07] MEDS ORDERED: LORazepam 1 MG Tab PO ONE (21:38)
[2020-10-07] MEDS ORDERED: LORazepam 1 MG Tab PO PRN (21:42)
[2020-10-07] MEDS ORDERED: Labetalol 20 MG/4 ML Syringe IVPUSH ONE (22:22)
[2020-10-07] MEDS: Thiamine 100 MG Tab PO SCH (23:31)
[2020-10-08] MEDS: Lactated Ringers 1,000 ML IV SCH ×3 (01:17→18:56)
[2020-10-08] MEDS ORDERED: NORGESTIMATE ETHINYL ESTRADIOL PO SCH (08:00)
[2020-10-08 08:08] LABS: HEMOGLOBIN A1C 4.8 % (4.3-5.7)
[2020-10-08] MEDS ORDERED: Lactated Ringers 1,000 ML IV ONE (08:12)
[2020-10-08] MEDS ORDERED: cefTRIAXone 2 GM Vial IVPUSH ONE (08:13)
[2020-10-08] MEDS: amLODIPine 5 MG Tab PO SCH (08:42)
[2020-10-08] MEDS: Levothyroxine 50 MCG Tab PO SCH (08:42)
[2020-10-08] MEDS: OMEPRAZOLE PO SCH (08:43)
[2020-10-08] MEDS: Isosorbide Mononitrate 30 MG Tab.ER PO SCH (08:43)
[2020-10-08] MEDS: Labetalol 100 MG Tab PO SCH ×2 (08:43→18:04)
--- NOTE | 2020-10-08 11:28 | PCM.PN ---
- General Info Date of Service: 10/08/20 Admission Dx/Problem (Free Text): 1. Atypical chest pain 2. Hypertensionuncontrolled 3. Lactic acid elevation 4. Asthma Functional Status: Reports: Pain Controlled, Tolerating Diet, Ambulating, Urinating, Incentive Spirometry. Denies: New Symptoms Pain Score: 0 - Review of Systems General: Reports: No Symptoms. Denies: Fever, Weakness, Fatigue, Malaise, Night Sweats, Appetite HEENT: Reports: No Symptoms. Denies: Dysphasia, Ear Pain, Eye Pain, Headaches, Post Nasal Drip, Sinus Congestion, Sore Throat, Rhinitis, Visual Changes Pulmonary: Reports: Cough (Chronic nonproductivestable). Denies: Shortness of Breath, Pleuritic Chest Pain, Sputum, Hemoptysis, Wheezing Cardiovascular: Reports: No Symptoms. Denies: Chest Pain, Palpitations, Dyspnea on Exertion, Orthopnea, Edema, Lightheadedness Gastrointestinal: Reports: No Symptoms, Other (No bowel movement since admission). Denies: Abdominal Pain, Constipation, Decreased Appetite, Diarrhea, Difficulty Swallowing, Flatus, Hematochezia, Melena, Nausea, Vomiting Genitourinary: Reports: No Symptoms. Denies: Dysuria, Frequency, Burning, Urgency, Incontinence, Hematuria, Retention, Flank Pain Musculoskeletal: Reports: No Symptoms. Denies: Shoulder Pain, Arm Pain, Back Pain, Leg Pain Skin: Reports: No Symptoms. Denies: Diaphoresis, Bruising, Rash Neurological: Reports: No Symptoms, Other (No DTs). Denies: Confusion, Di zziness, Numbness, Paresthesia, Tingling, Weakness Psychiatric: Reports: No Symptoms. Denies: Confusion, Depression, Anxiety, Agitation, Cravings, Hallucinations - Patient Data Vitals - Most Recent: Last Vital Signs Temp 36.9 C 10/08/20 05:00 Pulse 88 10/08/20 08:43 Resp 16 10/08/20 05:00 BP 152/87 H 10/08/20 08:43 Pulse Ox 97 10/08/20 05:00 Vital Signs - 24 hr 10/07/20 10/07/20 10/07/20 19:06 19:15 19:16 Temperature [ 36.1 C 36.6 C Temporal] Pulse, Peripheral Pulse, 120 H 113 H 112 H Peripheral [ Pulse Oximetry] Respiratory 18 27 H 23 H Rate Blood Pressure Blood Pressure 188/139 H 159/119 H 159/119 H [Left Arm] O2 Sat by Pulse 99 100 100 Oximetry 10/07/20 10/07/20 10/07/20 19:30 19:34 19:40 Temperature [ Temporal] Pulse, 117 H Peripheral Pulse, 103 H 100 Peripheral [ Pulse Oximetry] Respiratory 24 H 21 H Rate Blood Pressure 159/119 H Blood Pressure 178/135 H 163/126 H [Left Arm] O2 Sat by Pulse Oximetry 10/07/20 10/07/20 10/07/20 19:53 19:59 20:10 Temperature [ Temporal] Pulse, Peripheral Pulse, 114 H 100 Peripheral [ Pulse Oximetry] Respiratory 23 H 26 H Rate Blood Pressure 163/126 H Blood Pressure 116/67 123/88 [Left Arm] O2 Sat by Pulse 100 100 Oximetry 10/07/20 10/07/20 10/07/20 20:35 20:41 21:08 Temperature [ Temporal] Pulse, 102 H Peripheral Pulse, 105 H 102 H Peripheral [ Pulse Oximetry] Respiratory 25 H 19 Rate Blood Pressure 189/129 H Blood Pressure 159/114 H 166/116 H [Left Arm] O2 Sat by Pulse 100 100 Oximetry 10/07/20 10/07/20 10/07/20 21:10 21:21 21:31 Temperature [ 36.9 C Temporal] Pulse, 102 H Peripheral Pulse, 100 81 Peripheral [ Pulse Oximetry] Respiratory 20 16 Rate Blood Pressure 181/129 H Blood Pressure 181/129 H 157/110 H [Left Arm] O2 Sat by Pulse 100 96 Oximetry 10/07/20 10/08/20 10/08/20 23:31 01:00 03:00 Temperature [ 36.9 C 36.9 C 37.0 C Temporal] Pulse, Peripheral Pulse, 85 84 79 Peripheral [ Pulse Oximetry] Respiratory 16 16 16 Rate Blood Pressure Blood Pressure 135/89 149/100 H 147/104 H [Left Arm] O2 Sat by Pulse 96 99 100 Oximetry 10/08/20 10/08/20 10/08/20 05:00 08:42 08:43 Temperature [ 36.9 C Temporal] Pulse, 88 Peripheral Pulse, 85 Peripheral [ Pulse Oximetry] Respiratory 16 Rate Blood Pressure 152/87 H 152/87 H Blood Pressure 148/100 H [Left Arm] O2 Sat by Pulse 97 Oximetry Weight - Most Recent: 117.934 kg I&O - Last 24 Hours: Intake & Output 10/07/20 10/08/20 10/08/20 22:59 06:59 14:59 Intake Total 524 1578 Output Total 200 Balance 324 1578 Imaging Impressions - 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 No ectopy or arrhythmia. Lab Results Last 24 Hours: Laboratory Results - last 24 hr 10/07/20 10/07/20 10/07/20 Range/Units 19:31 19:31 19:31 WBC 9.9 (4.0-10.2) K/uL RBC 3.68 L (3.77-5.09) M/uL Hgb 13.7 (11.7-15.5) g/dL Hct 39.3 (34.0-46.0) % MCV 106.8 H (84.0-98.0) fL MCH 37.2 H (28.2-33.3) pg MCHC 34.9 (31.7-36.0) g/dL RDW 12.6 (11.2-14.1) % Plt Count 282 (150-350) K/uL Neut % (Auto) 68.3 (45.0-80.0) % Lymph % (Auto) 22.3 (10.0-50.0) % Jenkins % (Auto) 8.4 (2.0-14.0) % Eos % (Auto) 0.6 (0.0-5.0) % Baso % (Auto) 0.4 (0.0-2.0) % Neut # (Auto) 6.79 (1.40-7.00) K/uL Lymph # (Auto) 2.21 (0.50-3.50) K/uL Jenkins # (Auto) 0.83 (0.00-1.00) K/uL Eos # (Auto) 0.06 (0.00-0.50) K/uL Baso # (Auto) 0.04 (0.00-0.20) K/uL PT 10.4 (9.5-12.0) SEC INR 1.0 APTT 23.7 L (24.5-32.8) SEC D-Dimer, Quantitative < 100 (0-400) ng/mL Sodium (136-145) mmol/L Potassium (3.5-5.1) mmol/L Chloride (98-107) mmol/L Carbon Dioxide (21.0-32.0) mmol/L BUN (7-18) mg/dL Creatinine (0.51-1.17) mg/dL Est Cr Clr Drug Dosing mL/min Estimated GFR (MDRD) mL/min Glucose (70-99) mg/dL Hemoglobin A1c (4.3-5.7) % Lactic Acid (0.4-2.0) mmol/L Uric Acid (2.6-7.2) mg/dL Calcium (8.5-10.1) mg/dL Magnesium (1.8-2.4) mg/dL Iron (50-175) ug/dL TIBC (250-450) ug/dL % Saturation Ferritin (8-388) ng/mL Total Bilirubin (0.2-1.0) mg/dL Direct Bilirubin (0.0-0.2) mg/dL Indirect Bilirubin AST (15-37) U/L ALT (12-78) U/L Alkaline Phosphatase (46-116) IU/L Creatine Kinase (26-308) U/L Creatine Kinase Index (0.0-2.5) % CK-MB (CK-2) (0.00-3.60) ng/mL Troponin I (0.000-0.056) ng/mL NT-Pro-B Natriuret Pep (0-125) pg/mL Total Protein (6.4-8.2) g/dL Albumin (3.4-5.0) g/dL Triglycerides (30-150) mg/dL Cholesterol (100-200) mg/dL LDL Cholesterol, Calc (0-100) mg/dL HDL Cholesterol (40-60) mg/dL Vitamin B12 (193-986) pg/mL Folate (8.6-58.9) ng/mL TSH, Ultra Sensitive (0.358-3.740) mIU/mL HCG, Qual (NEGATIVE) Specimen Type Urine Color Urine Appearance Urine pH (5.0-9.0) Ur Specific Cross (1.005-1.030) Urine Protein (NEGATIVE) mg/dL Urine Glucose (UA) (NEGATIVE) mg/dL Urine Ketones (NEGATIVE) mg/dL Urine Occult Blood (NEGATIVE) Urine Nitrite (NEGATIVE) Urine Bilirubin (NEGATIVE) Urine Urobilinogen (0.2-1.0) E.U./dL Ur Leukocyte Esterase (NEGATIVE) U Hyaline Cast (Auto) Urine RBC /HPF Urine WBC /HPF Ur Epithelial Cells /LPF Amorphous Sediment (0/HPF) /HPF Urine Bacteria (NONE TO FEW) /HPF Urine Mucus (NEGATIVE) /LPF Ethyl Alcohol (0.000-0.080) g/dL SARS-CoV-2 RNA ([facility]) (NEGATIVE) 10/07/20 10/07/20 10/07/20 Range/Units 19:31 19:31 19:31 WBC (4.0-10.2) K/uL RBC (3.77-5.09) M/uL Hgb (11.7-15.5) g/dL Hct (34.0-46.0) % MCV (84.0-98.0) fL MCH (28.2-33.3) pg MCHC (31.7-36.0) g/dL RDW (11.2-14.1) % Plt Count (150-350) K/uL Neut % (Auto) (45.0-80.0) % Lymph % (Auto) (10.0-50.0) % Jenkins % (Auto) (2.0-14.0) % Eos % (Auto) (0.0-5.0) % Baso % (Auto) (0.0-2.0) % Neut # (Auto) (1.40-7.00) K/uL Lymph # (Auto) (0.50-3.50) K/uL Jenkins # (Auto) (0.00-1.00) K/uL Eos # (Auto) (0.00-0.50) K/uL Baso # (Auto) (0.00-0.20) K/uL PT (9.5-12.0) SEC INR APTT (24.5-32.8) SEC D-Dimer, Quantitative (0-400) ng/mL Sodium 138 (136-145) mmol/L Potassium 3.6 (3.5-5.1) mmol/L Chloride 99 (98-107) mmol/L Carbon Dioxide 22.3 (21.0-32.0) mmol/L BUN 9 (7-18) mg/dL Creatinine 0.66 (0.51-1.17) mg/dL Est Cr Clr Drug Dosing 113.50 mL/min Estimated GFR (MDRD) > 60 mL/min Glucose 115 H (70-99) mg/dL Hemoglobin A1c (4.3-5.7) % Lactic Acid 3.5 H (0.4-2.0) mmol/L Uric Acid 6.8 (2.6-7.2) mg/dL Calcium 8.8 (8.5-10.1) mg/dL Magnesium 1.2 L (1.8-2.4) mg/dL Iron (50-175) ug/dL TIBC (250-450) ug/dL % Saturation Ferritin (8-388) ng/mL Total Bilirubin 1.8 H (0.2-1.0) mg/dL Direct Bilirubin (0.0-0.2) mg/dL Indirect Bilirubin AST 188 H (15-37) U/L ALT 71 (12-78) U/L Alkaline Phosphatase 75 (46-116) IU/L Creatine Kinase 57 (26-308) U/L Creatine Kinase Index 0.9 (0.0-2.5) % CK-MB (CK-2) 0.50 (0.00-3.60) ng/mL Troponin I 0.000 (0.000-0.056) ng/mL NT-Pro-B Natriuret Pep 42 (0-125) pg/mL Total Protein 7.5 (6.4-8.2) g/dL Albumin 3.7 (3.4-5.0) g/dL Triglycerides (30-150) mg/dL Cholesterol (100-200) mg/dL LDL Cholesterol, Calc (0-100) mg/dL HDL Cholesterol (40-60) mg/dL Vitamin B12 (193-986) pg/mL Folate (8.6-58.9) ng/mL TSH, Ultra Sensitive 9.427 H (0.358-3.740) mIU/mL HCG, Qual Negative (NEGATIVE) Specimen Type Urine Color Urine Appearance Urine pH (5.0-9.0) Ur Specific Cross (1.005-1.030) Urine Protein (NEGATIVE) mg/dL Urine Glucose (UA) (NEGATIVE) mg/dL Urine Ketones (NEGATIVE) mg/dL Urine Occult Blood (NEGATIVE) Urine Nitrite (NEGATIVE) Urine Bilirubin (NEGATIVE) Urine Urobilinogen (0.2-1.0) E.U./dL Ur Leukocyte Esterase (NEGATIVE) U Hyaline Cast (Auto) Urine RBC /HPF Urine WBC /HPF Ur Epithelial Cells /LPF Amorphous Sediment (0/HPF) /HPF Urine Bacteria (NONE TO FEW) /HPF Urine Mucus (NEGATIVE) /LPF Ethyl Alcohol (0.000-0.080) g/dL SARS-CoV-2 RNA ([facility]) (NEGATIVE) 10/07/20 10/07/20 10/07/20 Range/Units 19:31 19:31 19:47 WBC (4.0-10.2) K/uL RBC (3.77-5.09) M/uL Hgb (11.7-15.5) g/dL Hct (34.0-46.0) % MCV (84.0-98.0) fL MCH (28.2-33.3) pg MCHC (31.7-36.0) g/dL RDW (11.2-14.1) % Plt Count (150-350) K/uL Neut % (Auto) (45.0-80.0) % Lymph % (Auto) (10.0-50.0) % Jenkins % (Auto) (2.0-14.0) % Eos % (Auto) (0.0-5.0) % Baso % (Auto) (0.0-2.0) % Neut # (Auto) (1.40-7.00) K/uL Lymph # (Auto) (0.50-3.50) K/uL Jenkins # (Auto) (0.00-1.00) K/uL Eos # (Auto) (0.00-0.50) K/uL Baso # (Auto) (0.00-0.20) K/uL PT (9.5-12.0) SEC INR APTT (24.5-32.8) SEC D-Dimer, Quantitative (0-400) ng/mL Sodium (136-145) mmol/L Potassium (3.5-5.1) mmol/L Chloride (98-107) mmol/L Carbon Dioxide (21.0-32.0) mmol/L BUN (7-18) mg/dL Creatinine (0.51-1.17) mg/dL Est Cr Clr Drug Dosing mL/min Estimated GFR (MDRD) mL/min Glucose (70-99) mg/dL Hemoglobin A1c (4.3-5.7) % Lactic Acid (0.4-2.0) mmol/L Uric Acid (2.6-7.2) mg/dL Calcium (8.5-10.1) mg/dL Magnesium (1.8-2.4) mg/dL Iron (50-175) ug/dL TIBC (250-450) ug/dL % Saturation Ferritin (8-388) ng/mL Total Bilirubin 1.8 H (0.2-1.0) mg/dL Direct Bilirubin 1.1 H (0.0-0.2) mg/dL Indirect Bilirubin 0.7 AST (15-37) U/L ALT (12-78) U/L Alkaline Phosphatase (46-116) IU/L Creatine Kinase (26-308) U/L Creatine Kinase Index (0.0-2.5) % CK-MB (CK-2) (0.00-3.60) ng/mL Troponin I (0.000-0.056) ng/mL NT-Pro-B Natriuret Pep (0-125) pg/mL Total Protein (6.4-8.2) g/dL Albumin (3.4-5.0) g/dL Triglycerides (30-150) mg/dL Cholesterol (100-200) mg/dL LDL Cholesterol, Calc (0-100) mg/dL HDL Cholesterol (40-60) mg/dL Vitamin B12 (193-986) pg/mL Folate (8.6-58.9) ng/mL TSH, Ultra Sensitive (0.358-3.740) mIU/mL HCG, Qual (NEGATIVE) Specimen Type Urine Color Urine Appearance Urine pH (5.0-9.0) Ur Specific Cross (1.005-1.030) Urine Protein (NEGATIVE) mg/dL Urine Glucose (UA) (NEGATIVE) mg/dL Urine Ketones (NEGATIVE) mg/dL Urine Occult Blood (NEGATIVE) Urine Nitrite (NEGATIVE) Urine Bilirubin (NEGATIVE) Urine Urobilinogen (0.2-1.0) E.U./dL Ur Leukocyte Esterase (NEGATIVE) U Hyaline Cast (Auto) Urine RBC /HPF Urine WBC /HPF Ur Epithelial Cells /LPF Amorphous Sediment (0/HPF) /HPF Urine Bacteria (NONE TO FEW) /HPF Urine Mucus (NEGATIVE) /LPF Ethyl Alcohol 0.001 (0.000-0.080) g/dL SARS-CoV-2 RNA ([facility]) Negative (NEGATIVE) 10/07/20 10/08/20 10/08/20 Range/Units 20:16 00:25 00:25 WBC (4.0-10.2) K/uL RBC (3.77-5.09) M/uL Hgb (11.7-15.5) g/dL Hct (34.0-46.0) % MCV (84.0-98.0) fL MCH (28.2-33.3) pg MCHC (31.7-36.0) g/dL RDW (11.2-14.1) % Plt Count (150-350) K/uL Neut % (Auto) (45.0-80.0) % Lymph % (Auto) (10.0-50.0) % Jenkins % (Auto) (2.0-14.0) % Eos % (Auto) (0.0-5.0) % Baso % (Auto) (0.0-2.0) % Neut # (Auto) (1.40-7.00) K/uL Lymph # (Auto) (0.50-3.50) K/uL Jenkins # (Auto) (0.00-1.00) K/uL Eos # (Auto) (0.00-0.50) K/uL Baso # (Auto) (0.00-0.20) K/uL PT (9.5-12.0) SEC INR APTT (24.5-32.8) SEC D-Dimer, Quantitative (0-400) ng/mL Sodium (136-145) mmol/L Potassium (3.5-5.1) mmol/L Chloride (98-107) mmol/L Carbon Dioxide (21.0-32.0) mmol/L BUN (7-18) mg/dL Creatinine (0.51-1.17) mg/dL Est Cr Clr Drug Dosing mL/min Estimated GFR (MDRD) mL/min Glucose (70-99) mg/dL Hemoglobin A1c (4.3-5.7) % Lactic Acid 2.9 H (0.4-2.0) mmol/L Uric Acid (2.6-7.2) mg/dL Calcium (8.5-10.1) mg/dL Magnesium (1.8-2.4) mg/dL Iron (50-175) ug/dL TIBC (250-450) ug/dL % Saturation Ferritin (8-388) ng/mL Total Bilirubin (0.2-1.0) mg/dL Direct Bilirubin (0.0-0.2) mg/dL Indirect Bilirubin AST (15-37) U/L ALT (12-78) U/L Alkaline Phosphatase (46-116) IU/L Creatine Kinase 53 (26-308) U/L Creatine Kinase Index 0.8 (0.0-2.5) % CK-MB (CK-2) 0.40 (0.00-3.60) ng/mL Troponin I 0.000 (0.000-0.056) ng/mL NT-Pro-B Natriuret Pep (0-125) pg/mL Total Protein (6.4-8.2) g/dL Albumin (3.4-5.0) g/dL Triglycerides (30-150) mg/dL Cholesterol (100-200) mg/dL LDL Cholesterol, Calc (0-100) mg/dL HDL Cholesterol (40-60) mg/dL Vitamin B12 (193-986) pg/mL Folate (8.6-58.9) ng/mL TSH, Ultra Sensitive (0.358-3.740) mIU/mL HCG, Qual (NEGATIVE) Specimen Type Urincc Urine Color Dark yellow Urine Appearance Cloudy Urine pH 6.0 (5.0-9.0) Ur Specific Cross 1.025 (1.005-1.030) Urine Protein 30 H (NEGATIVE) mg/dL Urine Glucose (UA) Negative (NEGATIVE) mg/dL Urine Ketones Trace H (NEGATIVE) mg/dL Urine Occult Blood Large H (NEGATIVE) Urine Nitrite Negative (NEGATIVE) Urine Bilirubin Moderate H (NEGATIVE) Urine Urobilinogen 2.0 H (0.2-1.0) E.U./dL Ur Leukocyte Esterase Negative (NEGATIVE) U Hyaline Cast (Auto) Occasional Urine RBC 20-30 H /HPF Urine WBC 0-5 /HPF Ur Epithelial Cells Many H /LPF Amorphous Sediment Occasional (0/HPF) /HPF Urine Bacteria Rare (NONE TO FEW) /HPF Urine Mucus Few H (NEGATIVE) /LPF Ethyl Alcohol (0.000-0.080) g/dL SARS-CoV-2 RNA ([facility]) (NEGATIVE) 10/08/20 10/08/20 10/08/20 Range/Units 07:09 07:09 07:09 WBC (4.0-10.2) K/uL RBC (3.77-5.09) M/uL Hgb (11.7-15.5) g/dL Hct (34.0-46.0) % MCV (84.0-98.0) fL MCH (28.2-33.3) pg MCHC (31.7-36.0) g/dL RDW (11.2-14.1) % Plt Count (150-350) K/uL Neut % (Auto) (45.0-80.0) % Lymph % (Auto) (10.0-50.0) % Jenkins % (Auto) (2.0-14.0) % Eos % (Auto) (0.0-5.0) % Baso % (Auto) (0.0-2.0) % Neut # (Auto) (1.40-7.00) K/uL Lymph # (Auto) (0.50-3.50) K/uL Jenkins # (Auto) (0.00-1.00) K/uL Eos # (Auto) (0.00-0.50) K/uL Baso # (Auto) (0.00-0.20) K/uL PT (9.5-12.0) SEC INR APTT (24.5-32.8) SEC D-Dimer, Quantitative (0-400) ng/mL Sodium (136-145) mmol/L Potassium (3.5-5.1) mmol/L Chloride (98-107) mmol/L Carbon Dioxide (21.0-32.0) mmol/L BUN (7-18) mg/dL Creatinine (0.51-1.17) mg/dL Est Cr Clr Drug Dosing mL/min Estimated GFR (MDRD) mL/min Glucose (70-99) mg/dL Hemoglobin A1c 4.8 (4.3-5.7) % Lactic Acid 3.0 H (0.4-2.0) mmol/L Uric Acid (2.6-7.2) mg/dL Calcium (8.5-10.1) mg/dL Magnesium 2.4 (1.8-2.4) mg/dL Iron (50-175) ug/dL TIBC (250-450) ug/dL % Saturation Ferritin (8-388) ng/mL Total Bilirubin (0.2-1.0) mg/dL Direct Bilirubin (0.0-0.2) mg/dL Indirect Bilirubin AST (15-37) U/L ALT (12-78) U/L Alkaline Phosphatase (46-116) IU/L Creatine Kinase 52 (26-308) U/L Creatine Kinase Index 0.8 (0.0-2.5) % CK-MB (CK-2) 0.40 (0.00-3.60) ng/mL Troponin I 0.000 (0.000-0.056) ng/mL NT-Pro-B Natriuret Pep (0-125) pg/mL Total Protein (6.4-8.2) g/dL Albumin (3.4-5.0) g/dL Triglycerides 169 H (30-150) mg/dL Cholesterol 182 (100-200) mg/dL LDL Cholesterol, Calc 102 H (0-100) mg/dL HDL Cholesterol 46 (40-60) mg/dL Vitamin B12 268 (193-986) pg/mL Folate 2.6 L (8.6-58.9) ng/mL TSH, Ultra Sensitive (0.358-3.740) mIU/mL HCG, Qual (NEGATIVE) Specimen Type Urine Color Urine Appearance Urine pH (5.0-9.0) Ur Specific Cross (1.005-1.030) Urine Protein (NEGATIVE) mg/dL Urine Glucose (UA) (NEGATIVE) mg/dL Urine Ketones (NEGATIVE) mg/dL Urine Occult Blood (NEGATIVE) Urine Nitrite (NEGATIVE) Urine Bilirubin (NEGATIVE) Urine Urobilinogen (0.2-1.0) E.U./dL Ur Leukocyte Esterase (NEGATIVE) U Hyaline Cast (Auto) Urine RBC /HPF Urine WBC /HPF Ur Epithelial Cells /LPF Amorphous Sediment (0/HPF) /HPF Urine Bacteria (NONE TO FEW) /HPF Urine Mucus (NEGATIVE) /LPF Ethyl Alcohol (0.000-0.080) g/dL SARS-CoV-2 RNA ([facility]) (NEGATIVE) 10/08/20 Range/Units 07:09 WBC (4.0-10.2) K/uL RBC (3.77-5.09) M/uL Hgb (11.7-15.5) g/dL Hct (34.0-46.0) % MCV (84.0-98.0) fL MCH (28.2-33.3) pg MCHC (31.7-36.0) g/dL RDW (11.2-14.1) % Plt Count (150-350) K/uL Neut % (Auto) (45.0-80.0) % Lymph % (Auto) (10.0-50.0) % Jenkins % (Auto) (2.0-14.0) % Eos % (Auto) (0.0-5.0) % Baso % (Auto) (0.0-2.0) % Neut # (Auto) (1.40-7.00) K/uL Lymph # (Auto) (0.50-3.50) K/uL Jenkins # (Auto) (0.00-1.00) K/uL Eos # (Auto) (0.00-0.50) K/uL Baso # (Auto) (0.00-0.20) K/uL PT (9.5-12.0) SEC INR APTT (24.5-32.8) SEC D-Dimer, Quantitative (0-400) ng/mL Sodium (136-145) mmol/L Potassium (3.5-5.1) mmol/L Chloride (98-107) mmol/L Carbon Dioxide (21.0-32.0) mmol/L BUN (7-18) mg/dL Creatinine (0.51-1.17) mg/dL Est Cr Clr Drug Dosing mL/min Estimated GFR (MDRD) mL/min Glucose (70-99) mg/dL Hemoglobin A1c (4.3-5.7) % Lactic Acid (0.4-2.0) mmol/L Uric Acid (2.6-7.2) mg/dL Calcium (8.5-10.1) mg/dL Magnesium (1.8-2.4) mg/dL Iron 187 H (50-175) ug/dL TIBC 338 (250-450) ug/dL % Saturation [id number] Ferritin 380 (8-388) ng/mL Total Bilirubin (0.2-1.0) mg/dL Direct Bilirubin (0.0-0.2) mg/dL Indirect Bilirubin AST (15-37) U/L ALT (12-78) U/L Alkaline Phosphatase (46-116) IU/L Creatine Kinase (26-308) U/L Creatine Kinase Index (0.0-2.5) % CK-MB (CK-2) (0.00-3.60) ng/mL Troponin I (0.000-0.056) ng/mL NT-Pro-B Natriuret Pep (0-125) pg/mL Total Protein (6.4-8.2) g/dL Albumin (3.4-5.0) g/dL Triglycerides (30-150) mg/dL Cholesterol (100-200) mg/dL LDL Cholesterol, Calc (0-100) mg/dL HDL Cholesterol (40-60) mg/dL Vitamin B12 (193-986) pg/mL Folate (8.6-58.9) ng/mL TSH, Ultra Sensitive (0.358-3.740) mIU/mL HCG, Qual (NEGATIVE) Specimen Type Urine Color Urine Appearance Urine pH (5.0-9.0) Ur Specific Cross (1.005-1.030) Urine Protein (NEGATIVE) mg/dL Urine Glucose (UA) (NEGATIVE) mg/dL Urine Ketones (NEGATIVE) mg/dL Urine Occult Blood (NEGATIVE) Urine Nitrite (NEGATIVE) Urine Bilirubin (NEGATIVE) Urine Urobilinogen (0.2-1.0) E.U./dL Ur Leukocyte Esterase (NEGATIVE) U Hyaline Cast (Auto) Urine RBC /HPF Urine WBC /HPF Ur Epithelial Cells /LPF Amorphous Sediment (0/HPF) /HPF Urine Bacteria (NONE TO FEW) /HPF Urine Mucus (NEGATIVE) /LPF Ethyl Alcohol (0.000-0.080) g/dL SARS-CoV-2 RNA ([facility]) (NEGATIVE) Bharathi Results Last 24 Hours: Microbiology 10/07/20 20:16 Urine Culture - Preliminary Urine, Clean Catch NO GROWTH AFTER 1 DAY 10/07/20 19:46 Influenza Type A Antigen Screen - Final Nasal, Unspecified NEGATIVE INFLUENZA A VIRUS AG REFERENCE RANGE: NEGATIVE Influenza Type B Antigen Screen - Final NEGATIVE INFLUENZA B VIRUS AG REFERENCE RANGE: NEGATIVE Med Orders - Current: Current Medications Acetaminophen (Acetaminophen 325 Mg Tab) 650 mg PO Q4H PRN PRN Reason: Pain Albuterol (Albuterol 6.7 Gm Inhaler) 0 gm INH Q4HR PRN PRN Reason: Shortness of Breath Amlodipine Besylate (Amlodipine 5 Mg Tab) 5 mg PO DAILY [facility] Last Admin: 10/08/20 08:42 Dose: 5 mg Documented by: Lactated Ringer's (Ringers, Lactated) 1,000 mls @ 125 mls/hr IV ASDIRECTED [facility] Last Admin: 10/08/20 10:51 Dose: 125 mls/hr Documented by: Ceftriaxone Sodium 1 gm/ (Sodium Chloride) 100 mls @ 200 mls/hr IV Q12H [facility] Isosorbide Mononitrate (Isosorbide Mononitrate 30 Mg Tab.Er) 60 mg PO DAILY [facility] Last Admin: 10/08/20 08:43 Dose: 60 mg Documented by: Labetalol HCl (Labetalol 100 Mg Tab) 100 mg PO BID [facility] Last Admin: 10/08/20 08:43 Dose: 100 mg Documented by: Levothyroxine Sodium (Levothyroxine 50 Mcg Tab) 50 mcg PO ACBREAKFAST [facility] Last Admin: 10/08/20 08:42 Dose: 50 mcg Documented by: Lorazepam (Lorazepam 1 Mg Tab) 1 mg PO Q4H PRN PRN Reason: Anxiety Magnesium Oxide (Magnesium Oxide 400 Mg Tab) 400 mg PO BID [facility] Nitroglycerin (Nitroglycerin 0.4 Mg Tab.Sl) 0.4 mg SL ONETIME STA Stop: 10/08/20 19:51 Last Admin: 10/07/20 19:53 Dose: 0.4 mg Documented by: Non-Formulary Medication (Norgestimate-Ethinyl Estradiol [Irma 0.25-0.035 Mg Tablet]) 1 tab PO DAILY [facility] Omeprazole (Omeprazole) 20 mg PO DAILY [facility] Last Admin: 10/08/20 08:43 Dose: 20 mg Documented by: Sodium Chloride (Sodium Chloride 0.9% 10 Ml Syringe) 10 ml FLUSH ASDIRECTED PRN PRN Reason: Keep Vein Open Last Admin: 10/07/20 19:49 Dose: 10 ml Documented by: Sodium Chloride (Sodium Chloride 0.9% 10 Ml Syringe) 10 ml FLUSH Q12HR PRN PRN Reason: Keep Vein Open Temazepam (Temazepam 15 Mg Cap) 15 mg PO BEDTIME PRN PRN Reason: Insomnia Thiamine HCl (Thiamine 100 Mg Tab) 100 mg PO BEDTIME [facility] Last Admin: 10/07/20 23:31 Dose: 100 mg Documented by: Discontinued Medications Ceftriaxone Sodium (Ceftriaxone 2 Gm Vial) 2 gm IVPUSH ONETIME ONE Stop: 10/08/20 08:14 Last Admin: 10/08/20 08:43 Dose: 2 gm Documented by: Famotidine (Famotidine 20 Mg/2 Ml Sdv) 40 mg IVPUSH ONETIME ONE Stop: 10/07/20 19:17 Last Admin: 10/07/20 19:39 Dose: 40 mg Documented by: Lactated Ringer's (Ringers, Lactated) 1,000 mls @ 999 mls/hr IV .BOLUS ONE Stop: 10/07/20 21:11 Last Admin: 10/07/20 20:13 Dose: 999 mls/hr Documented by: Magnesium Sulfate (Magnesium Sulfate In Water 4 Gm/100 Ml) 4 gm in 100 mls @ 25 mls/hr IV ONETIME ONE Stop: 10/08/20 01:34 Last Admin: 10/07/20 22:00 Dose: 25 mls/hr Documented by: Lactated Ringer's (Ringers, Lactated) 1,000 mls @ 999 mls/hr IV .BOLUS ONE Stop: 10/08/20 09:12 Last Admin: 10/08/20 08:45 Dose: 999 mls/hr Documented by: Labetalol HCl (Labetalol 20 Mg/4 Ml Syringe) 10 mg IVPUSH ONETIME ONE; Protocol Stop: 10/07/20 22:23 Last Admin: 10/07/20 23:01 Dose: 10 mg Documented by: Lorazepam (Lorazepam 1 Mg Tab) 1 mg PO ONETIME ONE Stop: 10/07/20 21:39 Last Admin: 10/07/20 22:01 Dose: 1 mg Documented by: Magnesium Oxide (Magnesium Oxide 400 Mg Tab) 800 mg PO ONETIME ONE Stop: 10/07/20 20:13 Last Admin: 10/07/20 20:23 Dose: 800 mg Documented by: Metoprolol Succinate (Metoprolol Succinate 50 Mg Tab.Er) 50 mg PO QPM [facility] Metoprolol Tartrate (Metoprolol Tartrate 5 Mg/5 Ml Sdv) 2.5 mg IVPUSH ONETIME ONE Stop: 10/07/20 19:17 Last Admin: 10/07/20 19:34 Dose: 2.5 mg Documented by: Metoprolol Tartrate (Metoprolol Tartrate 5 Mg/5 Ml Sdv) 2.5 mg IVPUSH ONETIME ONE Stop: 10/07/20 20:44 Last Admin: 10/07/20 21:10 Dose: 2.5 mg Documented by: Metoprolol Tartrate (Metoprolol Tartrate 50 Mg Tab) 25 mg PO ONETIME ONE Stop: 10/07/20 20:44 Last Admin: 10/07/20 21:08 Dose: 25 mg Documented by: - Exam Quality Assessment: DVT Prophylaxis. No: Supplemental Oxygen, Central Line/PICC, Urine Catheter, Skin Breakdown, Restraints General: Alert, Oriented, Cooperative, No Acute Distress HEENT: Pupils Equal, Pupils Reactive, EOMI, Mucous Membr. Moist/[place]. No: Scleral Icterus Neck: Supple, Trachea Midline, No JVD, No Thyromegaly, +2 Carotid Pulse wo Bruit. No: Carotid Bruit Lungs: Clear to Auscultation, Normal Respiratory Effort. No: Rub Cardiovascular: Regular Rate, Regular Rhythm, No Murmurs. No: Gallops, Rubs GI/Abdominal Exam: Normal Bowel Sounds, Soft, Non-Tender, No Organomegaly, No Distention, No Abnormal Bruit, No Mass, Pelvis Stable, Other (Morbid obesity). No: Guarding (Female) Exam: Deferred Back Exam: Normal Inspection, Full Range of Motion. No: CVA Tenderness (L), CVA Tenderness (R), Muscle Spasm Extremities: Normal Inspection, Normal Range of Motion, Non-Tender, No Pedal Edema, Normal Capillary Refill. No: Lyudmila's Sign Peripheral Pulses: 2+: Radial (L), Radial (R), Dorsalis Pedis (L), Dorsalis Pedis (R) Skin: Warm, Dry, Intact. No: Ecchymosis Neurological: No New Focal Deficit, Other (Negative Babinski's) Psy/Mental Status: Alert, Anxious (Mild to moderate), Depressed (Mild). No: Agitated, Hallucinations, Withdrawal Symptoms #1 Interpretation EKG Date: 10/08/20 Time: 08:36 Rhythm: NSR Rate (Beats/Min): 89 [place]: Normal (Left) P-Wave: Enlarged (Mild diffuse biphasic P waves) QRS: Normal (0.09 seconds) ST-T: Other (Stable T wave inversion V1 with new T wave inversion in lead V3? Lead placement) QT: Normal ME/PQ Interval: 0.17 seconds Comparison: Change From Previous EKG (As above since 10/07/2020) EKG Interpretation Comments: 1. Possible anterior wall cardiac ischemia? Lead placement 2. Left atrial enlargement - Patient Data Lab Results Last 24 hrs: Laboratory Results - last 24 hr 10/07/20 10/07/20 10/07/20 Range/Units 19:31 19:31 19:31 WBC 9.9 (4.0-10.2) K/uL RBC 3.68 L (3.77-5.09) M/uL Hgb 13.7 (11.7-15.5) g/dL Hct 39.3 (34.0-46.0) % MCV 106.8 H (84.0-98.0) fL MCH 37.2 H (28.2-33.3) pg MCHC 34.9 (31.7-36.0) g/dL RDW 12.6 (11.2-14.1) % Plt Count 282 (150-350) K/uL Neut % (Auto) 68.3 (45.0-80.0) % Lymph % (Auto) 22.3 (10.0-50.0) % Jenkins % (Auto) 8.4 (2.0-14.0) % Eos % (Auto) 0.6 (0.0-5.0) % Baso % (Auto) 0.4 (0.0-2.0) % Neut # (Auto) 6.79 (1.40-7.00) K/uL Lymph # (Auto) 2.21 (0.50-3.50) K/uL Jenkins # (Auto) 0.83 (0.00-1.00) K/uL Eos # (Auto) 0.06 (0.00-0.50) K/uL Baso # (Auto) 0.04 (0.00-0.20) K/uL PT 10.4 (9.5-12.0) SEC INR 1.0 APTT 23.7 L (24.5-32.8) SEC D-Dimer, Quantitative < 100 (0-400) ng/mL Sodium (136-145) mmol/L Potassium (3.5-5.1) mmol/L Chloride (98-107) mmol/L Carbon Dioxide (21.0-32.0) mmol/L BUN (7-18) mg/dL Creatinine (0.51-1.17) mg/dL Est Cr Clr Drug Dosing mL/min Estimated GFR (MDRD) mL/min Glucose (70-99) mg/dL Hemoglobin A1c (4.3-5.7) % Lactic Acid (0.4-2.0) mmol/L Uric Acid (2.6-7.2) mg/dL Calcium (8.5-10.1) mg/dL Magnesium (1.8-2.4) mg/dL Iron (50-175) ug/dL TIBC (250-450) ug/dL % Saturation Ferritin (8-388) ng/mL Total Bilirubin (0.2-1.0) mg/dL Direct Bilirubin (0.0-0.2) mg/dL Indirect Bilirubin AST (15-37) U/L ALT (12-78) U/L Alkaline Phosphatase (46-116) IU/L Creatine Kinase (26-308) U/L Creatine Kinase Index (0.0-2.5) % CK-MB (CK-2) (0.00-3.60) ng/mL Troponin I (0.000-0.056) ng/mL NT-Pro-B Natriuret Pep (0-125) pg/mL Total Protein (6.4-8.2) g/dL Albumin (3.4-5.0) g/dL Triglycerides (30-150) mg/dL Cholesterol (100-200) mg/dL LDL Cholesterol, Calc (0-100) mg/dL HDL Cholesterol (40-60) mg/dL Vitamin B12 (193-986) pg/mL Folate (8.6-58.9) ng/mL TSH, Ultra Sensitive (0.358-3.740) mIU/mL HCG, Qual (NEGATIVE) Specimen Type Urine Color Urine Appearance Urine pH (5.0-9.0) Ur Specific Cross (1.005-1.030) Urine Protein (NEGATIVE) mg/dL Urine Glucose (UA) (NEGATIVE) mg/dL Urine Ketones (NEGATIVE) mg/dL Urine Occult Blood (NEGATIVE) Urine Nitrite (NEGATIVE) Urine Bilirubin (NEGATIVE) Urine Urobilinogen (0.2-1.0) E.U./dL Ur Leukocyte Esterase (NEGATIVE) U Hyaline Cast (Auto) Urine RBC /HPF Urine WBC /HPF Ur Epithelial Cells /LPF Amorphous Sediment (0/HPF) /HPF Urine Bacteria (NONE TO FEW) /HPF Urine Mucus (NEGATIVE) /LPF Ethyl Alcohol (0.000-0.080) g/dL SARS-CoV-2 RNA ([facility]) (NEGATIVE) 10/07/20 10/07/20 10/07/20 Range/Units 19:31 19:31 19:31 WBC (4.0-10.2) K/uL RBC (3.77-5.09) M/uL Hgb (11.7-15.5) g/dL Hct (34.0-46.0) % MCV (84.0-98.0) fL MCH (28.2-33.3) pg MCHC (31.7-36.0) g/dL RDW (11.2-14.1) % Plt Count (150-350) K/uL Neut % (Auto) (45.0-80.0) % Lymph % (Auto) (10.0-50.0) % Jenkins % (Auto) (2.0-14.0) % Eos % (Auto) (0.0-5.0) % Baso % (Auto) (0.0-2.0) % Neut # (Auto) (1.40-7.00) K/uL Lymph # (Auto) (0.50-3.50) K/uL Jenkins # (Auto) (0.00-1.00) K/uL Eos # (Auto) (0.00-0.50) K/uL Baso # (Auto) (0.00-0.20) K/uL PT (9.5-12.0) SEC INR APTT (24.5-32.8) SEC D-Dimer, Quantitative (0-400) ng/mL Sodium 138 (136-145) mmol/L Potassium 3.6 (3.5-5.1) mmol/L Chloride 99 (98-107) mmol/L Carbon Dioxide 22.3 (21.0-32.0) mmol/L BUN 9 (7-18) mg/dL Creatinine 0.66 (0.51-1.17) mg/dL Est Cr Clr Drug Dosing 113.50 mL/min Estimated GFR (MDRD) > 60 mL/min Glucose 115 H (70-99) mg/dL Hemoglobin A1c (4.3-5.7) % Lactic Acid 3.5 H (0.4-2.0) mmol/L Uric Acid 6.8 (2.6-7.2) mg/dL Calcium 8.8 (8.5-10.1) mg/dL Magnesium 1.2 L (1.8-2.4) mg/dL Iron (50-175) ug/dL TIBC (250-450) ug/dL % Saturation Ferritin (8-388) ng/mL Total Bilirubin 1.8 H (0.2-1.0) mg/dL Direct Bilirubin (0.0-0.2) mg/dL Indirect Bilirubin AST 188 H (15-37) U/L ALT 71 (12-78) U/L Alkaline Phosphatase 75 (46-116) IU/L Creatine Kinase 57 (26-308) U/L Creatine Kinase Index 0.9 (0.0-2.5) % CK-MB (CK-2) 0.50 (0.00-3.60) ng/mL Troponin I 0.000 (0.000-0.056) ng/mL NT-Pro-B Natriuret Pep 42 (0-125) pg/mL Total Protein 7.5 (6.4-8.2) g/dL Albumin 3.7 (3.4-5.0) g/dL Triglycerides (30-150) mg/dL Cholesterol (100-200) mg/dL LDL Cholesterol, Calc (0-100) mg/dL HDL Cholesterol (40-60) mg/dL Vitamin B12 (193-986) pg/mL Folate (8.6-58.9) ng/mL TSH, Ultra Sensitive 9.427 H (0.358-3.740) mIU/mL HCG, Qual Negative (NEGATIVE) Specimen Type Urine Color Urine Appearance Urine pH (5.0-9.0) Ur Specific Cross (1.005-1.030) Urine Protein (NEGATIVE) mg/dL Urine Glucose (UA) (NEGATIVE) mg/dL Urine Ketones (NEGATIVE) mg/dL Urine Occult Blood (NEGATIVE) Urine Nitrite (NEGATIVE) Urine Bilirubin (NEGATIVE) Urine Urobilinogen (0.2-1.0) E.U./dL Ur Leukocyte Esterase (NEGATIVE) U Hyaline Cast (Auto) Urine RBC /HPF Urine WBC /HPF Ur Epithelial Cells /LPF Amorphous Sediment (0/HPF) /HPF Urine Bacteria (NONE TO FEW) /HPF Urine Mucus (NEGATIVE) /LPF Ethyl Alcohol (0.000-0.080) g/dL SARS-CoV-2 RNA ([facility]) (NEGATIVE) 10/07/20 10/07/20 10/07/20 Range/Units 19:31 19:31 19:47 WBC (4.0-10.2) K/uL RBC (3.77-5.09) M/uL Hgb (11.7-15.5) g/dL Hct (34.0-46.0) % MCV (84.0-98.0) fL MCH (28.2-33.3) pg MCHC (31.7-36.0) g/dL RDW (11.2-14.1) % Plt Count (150-350) K/uL Neut % (Auto) (45.0-80.0) % Lymph % (Auto) (10.0-50.0) % Jenkins % (Auto) (2.0-14.0) % Eos % (Auto) (0.0-5.0) % Baso % (Auto) (0.0-2.0) % Neut # (Auto) (1.40-7.00) K/uL Lymph # (Auto) (0.50-3.50) K/uL Jenkins # (Auto) (0.00-1.00) K/uL Eos # (Auto) (0.00-0.50) K/uL Baso # (Auto) (0.00-0.20) K/uL PT (9.5-12.0) SEC INR APTT (24.5-32.8) SEC D-Dimer, Quantitative (0-400) ng/mL Sodium (136-145) mmol/L Potassium (3.5-5.1) mmol/L Chloride (98-107) mmol/L Carbon Dioxide (21.0-32.0) mmol/L BUN (7-18) mg/dL Creatinine (0.51-1.17) mg/dL Est Cr Clr Drug Dosing mL/min Estimated GFR (MDRD) mL/min Glucose (70-99) mg/dL Hemoglobin A1c (4.3-5.7) % Lactic Acid (0.4-2.0) mmol/L Uric Acid (2.6-7.2) mg/dL Calcium (8.5-10.1) mg/dL Magnesium (1.8-2.4) mg/dL Iron (50-175) ug/dL TIBC (250-450) ug/dL % Saturation Ferritin (8-388) ng/mL Total Bilirubin 1.8 H (0.2-1.0) mg/dL Direct Bilirubin 1.1 H (0.0-0.2) mg/dL Indirect Bilirubin 0.7 AST (15-37) U/L ALT (12-78) U/L Alkaline Phosphatase (46-116) IU/L Creatine Kinase (26-308) U/L Creatine Kinase Index (0.0-2.5) % CK-MB (CK-2) (0.00-3.60) ng/mL Troponin I (0.000-0.056) ng/mL NT-Pro-B Natriuret Pep (0-125) pg/mL Total Protein (6.4-8.2) g/dL Albumin (3.4-5.0) g/dL Triglycerides (30-150) mg/dL Cholesterol (100-200) mg/dL LDL Cholesterol, Calc (0-100) mg/dL HDL Cholesterol (40-60) mg/dL Vitamin B12 (193-986) pg/mL Folate (8.6-58.9) ng/mL TSH, Ultra Sensitive (0.358-3.740) mIU/mL HCG, Qual (NEGATIVE) Specimen Type Urine Color Urine Appearance Urine pH (5.0-9.0) Ur Specific Cross (1.005-1.030) Urine Protein (NEGATIVE) mg/dL Urine Glucose (UA) (NEGATIVE) mg/dL Urine Ketones (NEGATIVE) mg/dL Urine Occult Blood (NEGATIVE) Urine Nitrite (NEGATIVE) Urine Bilirubin (NEGATIVE) Urine Urobilinogen (0.2-1.0) E.U./dL Ur Leukocyte Esterase (NEGATIVE) U Hyaline Cast (Auto) Urine RBC /HPF Urine WBC /HPF Ur Epithelial Cells /LPF Amorphous Sediment (0/HPF) /HPF Urine Bacteria (NONE TO FEW) /HPF Urine Mucus (NEGATIVE) /LPF Ethyl Alcohol 0.001 (0.000-0.080) g/dL SARS-CoV-2 RNA ([facility]) Negative (NEGATIVE) 10/07/20 10/08/20 10/08/20 Range/Units 20:16 00:25 00:25 WBC (4.0-10.2) K/uL RBC (3.77-5.09) M/uL Hgb (11.7-15.5) g/dL Hct (34.0-46.0) % MCV (84.0-98.0) fL MCH (28.2-33.3) pg MCHC (31.7-36.0) g/dL RDW (11.2-14.1) % Plt Count (150-350) K/uL Neut % (Auto) (45.0-80.0) % Lymph % (Auto) (10.0-50.0) % Jenkins % (Auto) (2.0-14.0) % Eos % (Auto) (0.0-5.0) % Baso % (Auto) (0.0-2.0) % Neut # (Auto) (1.40-7.00) K/uL Lymph # (Auto) (0.50-3.50) K/uL Jenkins # (Auto) (0.00-1.00) K/uL Eos # (Auto) (0.00-0.50) K/uL Baso # (Auto) (0.00-0.20) K/uL PT (9.5-12.0) SEC INR APTT (24.5-32.8) SEC D-Dimer, Quantitative (0-400) ng/mL Sodium (136-145) mmol/L Potassium (3.5-5.1) mmol/L Chloride (98-107) mmol/L Carbon Dioxide (21.0-32.0) mmol/L BUN (7-18) mg/dL Creatinine (0.51-1.17) mg/dL Est Cr Clr Drug Dosing mL/min Estimated GFR (MDRD) mL/min Glucose (70-99) mg/dL Hemoglobin A1c (4.3-5.7) % Lactic Acid 2.9 H (0.4-2.0) mmol/L Uric Acid (2.6-7.2) mg/dL Calcium (8.5-10.1) mg/dL Magnesium (1.8-2.4) mg/dL Iron (50-175) ug/dL TIBC (250-450) ug/dL % Saturation Ferritin (8-388) ng/mL Total Bilirubin (0.2-1.0) mg/dL Direct Bilirubin (0.0-0.2) mg/dL Indirect Bilirubin AST (15-37) U/L ALT (12-78) U/L Alkaline Phosphatase (46-116) IU/L Creatine Kinase 53 (26-308) U/L Creatine Kinase Index 0.8 (0.0-2.5) % CK-MB (CK-2) 0.40 (0.00-3.60) ng/mL Troponin I 0.000 (0.000-0.056) ng/mL NT-Pro-B Natriuret Pep (0-125) pg/mL Total Protein (6.4-8.2) g/dL Albumin (3.4-5.0) g/dL Triglycerides (30-150) mg/dL Cholesterol (100-200) mg/dL LDL Cholesterol, Calc (0-100) mg/dL HDL Cholesterol (40-60) mg/dL Vitamin B12 (193-986) pg/mL Folate (8.6-58.9) ng/mL TSH, Ultra Sensitive (0.358-3.740) mIU/mL HCG, Qual (NEGATIVE) Specimen Type Urincc Urine Color Dark yellow Urine Appearance Cloudy Urine pH 6.0 (5.0-9.0) Ur Specific Cross 1.025 (1.005-1.030) Urine Protein 30 H (NEGATIVE) mg/dL Urine Glucose (UA) Negative (NEGATIVE) mg/dL Urine Ketones Trace H (NEGATIVE) mg/dL Urine Occult Blood Large H (NEGATIVE) Urine Nitrite Negative (NEGATIVE) Urine Bilirubin Moderate H (NEGATIVE) Urine Urobilinogen 2.0 H (0.2-1.0) E.U./dL Ur Leukocyte Esterase Negative (NEGATIVE) U Hyaline Cast (Auto) Occasional Urine RBC 20-30 H /HPF Urine WBC 0-5 /HPF Ur Epithelial Cells Many H /LPF Amorphous Sediment Occasional (0/HPF) /HPF Urine Bacteria Rare (NONE TO FEW) /HPF Urine Mucus Few H (NEGATIVE) /LPF Ethyl Alcohol (0.000-0.080) g/dL SARS-CoV-2 RNA ([facility]) (NEGATIVE) 10/08/20 10/08/20 10/08/20 Range/Units 07:09 07:09 07:09 WBC (4.0-10.2) K/uL RBC (3.77-5.09) M/uL Hgb (11.7-15.5) g/dL Hct (34.0-46.0) % MCV (84.0-98.0) fL MCH (28.2-33.3) pg MCHC (31.7-36.0) g/dL RDW (11.2-14.1) % Plt Count (150-350) K/uL Neut % (Auto) (45.0-80.0) % Lymph % (Auto) (10.0-50.0) % Jenkins % (Auto) (2.0-14.0) % Eos % (Auto) (0.0-5.0) % Baso % (Auto) (0.0-2.0) % Neut # (Auto) (1.40-7.00) K/uL Lymph # (Auto) (0.50-3.50) K/uL Jenkins # (Auto) (0.00-1.00) K/uL Eos # (Auto) (0.00-0.50) K/uL Baso # (Auto) (0.00-0.20) K/uL PT (9.5-12.0) SEC INR APTT (24.5-32.8) SEC D-Dimer, Quantitative (0-400) ng/mL Sodium (136-145) mmol/L Potassium (3.5-5.1) mmol/L Chloride (98-107) mmol/L Carbon Dioxide (21.0-32.0) mmol/L BUN (7-18) mg/dL Creatinine (0.51-1.17) mg/dL Est Cr Clr Drug Dosing mL/min Estimated GFR (MDRD) mL/min Glucose (70-99) mg/dL Hemoglobin A1c 4.8 (4.3-5.7) % Lactic Acid 3.0 H (0.4-2.0) mmol/L Uric Acid (2.6-7.2) mg/dL Calcium (8.5-10.1) mg/dL Magnesium 2.4 (1.8-2.4) mg/dL Iron (50-175) ug/dL TIBC (250-450) ug/dL % Saturation Ferritin (8-388) ng/mL Total Bilirubin (0.2-1.0) mg/dL Direct Bilirubin (0.0-0.2) mg/dL Indirect Bilirubin AST (15-37) U/L ALT (12-78) U/L Alkaline Phosphatase (46-116) IU/L Creatine Kinase 52 (26-308) U/L Creatine Kinase Index 0.8 (0.0-2.5) % CK-MB (CK-2) 0.40 (0.00-3.60) ng/mL Troponin I 0.000 (0.000-0.056) ng/mL NT-Pro-B Natriuret Pep (0-125) pg/mL Total Protein (6.4-8.2) g/dL Albumin (3.4-5.0) g/dL Triglycerides 169 H (30-150) mg/dL Cholesterol 182 (100-200) mg/dL LDL Cholesterol, Calc 102 H (0-100) mg/dL HDL Cholesterol 46 (40-60) mg/dL Vitamin B12 268 (193-986) pg/mL Folate 2.6 L (8.6-58.9) ng/mL TSH, Ultra Sensitive (0.358-3.740) mIU/mL HCG, Qual (NEGATIVE) Specimen Type Urine Color Urine Appearance Urine pH (5.0-9.0) Ur Specific Cross (1.005-1.030) Urine Protein (NEGATIVE) mg/dL Urine Glucose (UA) (NEGATIVE) mg/dL Urine Ketones (NEGATIVE) mg/dL Urine Occult Blood (NEGATIVE) Urine Nitrite (NEGATIVE) Urine Bilirubin (NEGATIVE) Urine Urobilinogen (0.2-1.0) E.U./dL Ur Leukocyte Esterase (NEGATIVE) U Hyaline Cast (Auto) Urine RBC /HPF Urine WBC /HPF Ur Epithelial Cells /LPF Amorphous Sediment (0/HPF) /HPF Urine Bacteria (NONE TO FEW) /HPF Urine Mucus (NEGATIVE) /LPF Ethyl Alcohol (0.000-0.080) g/dL SARS-CoV-2 RNA ([facility]) (NEGATIVE) 10/08/20 Range/Units 07:09 WBC (4.0-10.2) K/uL RBC (3.77-5.09) M/uL Hgb (11.7-15.5) g/dL Hct (34.0-46.0) % MCV (84.0-98.0) fL MCH (28.2-33.3) pg MCHC (31.7-36.0) g/dL RDW (11.2-14.1) % Plt Count (150-350) K/uL Neut % (Auto) (45.0-80.0) % Lymph % (Auto) (10.0-50.0) % Jenkins % (Auto) (2.0-14.0) % Eos % (Auto) (0.0-5.0) % Baso % (Auto) (0.0-2.0) % Neut # (Auto) (1.40-7.00) K/uL Lymph # (Auto) (0.50-3.50) K/uL Jenkins # (Auto) (0.00-1.00) K/uL Eos # (Auto) (0.00-0.50) K/uL Baso # (Auto) (0.00-0.20) K/uL PT (9.5-12.0) SEC INR APTT (24.5-32.8) SEC D-Dimer, Quantitative (0-400) ng/mL Sodium (136-145) mmol/L Potassium (3.5-5.1) mmol/L Chloride (98-107) mmol/L Carbon Dioxide (21.0-32.0) mmol/L BUN (7-18) mg/dL Creatinine (0.51-1.17) mg/dL Est Cr Clr Drug Dosing mL/min Estimated GFR (MDRD) mL/min Glucose (70-99) mg/dL Hemoglobin A1c (4.3-5.7) % Lactic Acid (0.4-2.0) mmol/L Uric Acid (2.6-7.2) mg/dL Calcium (8.5-10.1) mg/dL Magnesium (1.8-2.4) mg/dL Iron 187 H (50-175) ug/dL TIBC 338 (250-450) ug/dL % Saturation [id number] Ferritin 380 (8-388) ng/mL Total Bilirubin (0.2-1.0) mg/dL Direct Bilirubin (0.0-0.2) mg/dL Indirect Bilirubin AST (15-37) U/L ALT (12-78) U/L Alkaline Phosphatase (46-116) IU/L Creatine Kinase (26-308) U/L Creatine Kinase Index (0.0-2.5) % CK-MB (CK-2) (0.00-3.60) ng/mL Troponin I (0.000-0.056) ng/mL NT-Pro-B Natriuret Pep (0-125) pg/mL Total Protein (6.4-8.2) g/dL Albumin (3.4-5.0) g/dL Triglycerides (30-150) mg/dL Cholesterol (100-200) mg/dL LDL Cholesterol, Calc (0-100) mg/dL HDL Cholesterol (40-60) mg/dL Vitamin B12 (193-986) pg/mL Folate (8.6-58.9) ng/mL TSH, Ultra Sensitive (0.358-3.740) mIU/mL HCG, Qual (NEGATIVE) Specimen Type Urine Color Urine Appearance Urine pH (5.0-9.0) Ur Specific Cross (1.005-1.030) Urine Protein (NEGATIVE) mg/dL Urine Glucose (UA) (NEGATIVE) mg/dL Urine Ketones (NEGATIVE) mg/dL Urine Occult Blood (NEGATIVE) Urine Nitrite (NEGATIVE) Urine Bilirubin (NEGATIVE) Urine Urobilinogen (0.2-1.0) E.U./dL Ur Leukocyte Esterase (NEGATIVE) U Hyaline Cast (Auto) Urine RBC /HPF Urine WBC /HPF Ur Epithelial Cells /LPF Amorphous Sediment (0/HPF) /HPF Urine Bacteria (NONE TO FEW) /HPF Urine Mucus (NEGATIVE) /LPF Ethyl Alcohol (0.000-0.080) g/dL SARS-CoV-2 RNA ([facility]) (NEGATIVE) Result Diagrams: 10/07/20 19:31 10/07/20 19:31 Bharathi Results Last 24 hrs: Microbiology 10/07/20 20:16 Urine Culture - Preliminary Urine, Clean Catch NO GROWTH AFTER 1 DAY 10/07/20 19:46 Influenza Type A Antigen Screen - Final Nasal, Unspecified NEGATIVE INFLUENZA A VIRUS AG REFERENCE RANGE: NEGATIVE Influenza Type B Antigen Screen - Final NEGATIVE INFLUENZA B VIRUS AG REFERENCE RANGE: NEGATIVE Sepsis Event Note - Evaluation Sepsis Screening Result: No Definite Risk - Focused Exam Vital Signs: Vital Signs Temp Pulse Pulse Resp BP BP Pulse Ox 10/08/20 08:43 88 152/87 H 10/08/20 08:42 152/87 H 10/08/20 05:00 36.9 C 85 16 148/100 H 97 10/08/20 03:00 37.0 C 79 16 147/104 H 100 10/08/20 01:00 36.9 C 84 16 149/100 H 99 10/07/20 23:31 36.9 C 85 16 135/89 96 - Problem List & Annotations (1) Chest pain SNOMED Code(s): 38290736 Code(s): R07.9 - CHEST PAIN, UNSPECIFIED Status: Acute Priority: High Current Visit: Yes Onset Date: 10/07/20 Qualifiers: Chest pain type: precordial pain Qualified Code(s): R07.2 - Precordial pain Annotation/Comment:: Questionable anterior wall cardiac ischemia versus false lead placement, etc. Negative work-up for acute MT to this point with no chest pain or anginal type symptoms since placement in observation status. Her blood pressures continue to be under moderately poor control. Note initial atypical chest pain prior to emergency room evaluation with chest pain protocol not initiated upon patient's arrival secondary to absence of symptoms at time of my exam. Cardiology consultations depending on her clinical course. Sublingual nitroglycerin was used for blood pressure control with excellent results. Note moderate tachycardia with history of alcohol abuse, anxiety, etc. as per emergency room note with overall good results with 2.5 mg of IV Lopressor initially with subsequent requirement of oral Lopressor and change to Normodyne. (2) Hypertension SNOMED Code(s): 62887838 Code(s): I10 - ESSENTIAL (PRIMARY) HYPERTENSION Status: Chronic Priority: High Current Visit: Yes Qualifiers: Hypertension type: essential hypertension Qualified Code(s): I10 - Essential (primary) hypertension Annotation/Comment:: Blood pressures continue to be under poor control in spite of aggressive medical therapy. Further medication adjustments on 10/08, including more aggressive oral Normodyne therapy. Hypertension recently under poor control and somewhat refractory to therapy despite aggressive treatment in our emergency room prior and also by her regular providers. Strong anxiety component with no evidence of DTs, although oral Ativan was initiated shortly after admission. IV Normodyne was given shortly after placement in observation status with oral and IV Lopressor given in the emergency room as above. (3) Lactic acid increased SNOMED Code(s): 12414892 Code(s): E87.2 - ACIDOSIS Status: Acute Priority: High Current Visit: Yes Onset Date: 10/07/20 Annotation/Comment:: Lactic acid level continues to be increased in spite of aggressive IV hydration. IV Rocephin therapy initiated on 10/08, although no leukocytosis or fever to this point. Lactic acid protocol and order set was initiated. Blood cultures x2 were collected. No evidence of pneumonia by chest x-ray. UA also ordered with no direct evidence of infection, although urine specimen set up for culture and sensitivity. (4) Asthma SNOMED Code(s): 031756057 Code(s): J45.909 - UNSPECIFIED ASTHMA, UNCOMPLICATED Status: Chronic Priority: Medium Current Visit: Yes Qualifiers: Asthma severity: mild Asthma persistence: intermittent Asthma complication type: uncomplicated Qualified Code(s): J45.20 - Mild intermittent asthma, uncomplicated Annotation/Comment:: No recent fever or bronchitic type symptoms despite elevated lactic acid level as above. No bronchitis or pneumonia by clinical exam or today's chest x-ray. Observe for now. (5) Elevated LFTs SNOMED Code(s): 788410725 Code(s): R79.89 - OTHER SPECIFIED ABNORMAL FINDINGS OF BLOOD CHEMISTRY Status: Acute Priority: Medium Current Visit: Yes Onset Date: 10/07/20 Annotation/Comment:: LFTs elevation possibly secondary to her obesity, alcohol use, etc. Note hyperbilirubinemia. Further work-up depending on her clinical course. No known exposure to hepatitis, etc. (6) Hypomagnesemia SNOMED Code(s): 923894906 Code(s): E83.42 - HYPOMAGNESEMIA Status: Acute Priority: High Current Visit: Yes Onset Date: 10/07/20 Annotation/Comment:: High-dose magnesium oxide given orally in the emergency room with subsequent infusion of IV magnesium sulfate after completion of 1 L IV bolus of lactated Ringer's as above. (7) Hypothyroidism (acquired) SNOMED Code(s): 986308817 Code(s): E03.9 - HYPOTHYROIDISM, UNSPECIFIED Status: Acute Priority: High Current Visit: Yes Onset Date: 10/07/20 Annotation/Comment:: Elevated TSH. Initiate low-dose Synthroid after admission with TSH to be repeated by her regular provider in about 4 weeks. (8) Macrocytosis SNOMED Code(s): 673403536 Code(s): D75.89 - OTHER SPECIFIED DISEASES OF BLOOD AND BLOOD-FORMING ORGANS Status: Acute Priority: High Current Visit: Yes Onset Date: 10/07/20 Annotation/Comment:: Note alcohol abuse history. Vitamin B12 and iron studies were normal on 10/08/2020 with mildly decreased folic acid level as below. Oral thiamine was initiated shortly after patient's admission secondary to her history of alcohol abuse. (9) Mixed anxiety depressive disorder SNOMED Code(s): 617688781 Code(s): F41.8 - OTHER SPECIFIED ANXIETY DISORDERS Status: Acute Priority: High Current Visit: Yes Annotation/Comment:: Moderate control based on today's exam. Note alcohol abuse history during the last couple of ye ars with no DTs to this point. Close follow-up by regular provider at discharge with consideration of alcohol treatment, counseling for her anxiety depression, etc.. (10) Obesity (BMI 30-39.9) SNOMED Code(s): 230081759, 745475501 Code(s): E66.9 - OBESITY, UNSPECIFIED Status: Chronic Priority: High Current Visit: Yes Annotation/Comment:: Weight loss in moderation is advisable. Note hypothyroidism as above. Lipid panel shows some mild hypertriglyceridemia with normal glycosylated hemoglobin of 4.8% on 10/08/2020. (11) Folic acid deficiency SNOMED Code(s): 664241426 Code(s): E53.8 - DEFICIENCY OF OTHER SPECIFIED B GROUP VITAMINS Status: Acute Priority: Medium Current Visit: Yes Onset Date: 10/08/20 Annotation/Comment:: Vitamin B12 level normal. Mild decrease in folic acid with initiation of supplementation today. - Problem List Review Problem List Initiated/Reviewed/Updated: Yes - My Orders Last 24 Hours: My Active Orders 10/07/20 19:16 Cardiac Monitoring [RC] . DIRECTED EKG Documentation Completion [RC] ASDIRECTED Peripheral IV Care [RC] . DIRECTED Chest 1V Frontal [CR] Stat Sodium Chloride 0.9% [Saline Flush] 10 ml FLUSH ASDIRECTED PRN Peripheral IV Insertion Adult [OM.PC] Stat Resuscitation Status Stat 10/07/20 19:45 Isolation [COMM] Routine 10/07/20 19:50 Nitroglycerin [Nitrostat] 0.4 mg SL ONETIME STA 10/07/20 20:11 Blood Culture x2 Reflex Set [OM.PC] Urgent 10/07/20 20:16 CULTURE URINE [RM] Routine 10/07/20 20:26 CULTURE BLOOD [BC] Stat 10/07/20 20:31 CULTURE BLOOD [BC] Stat 10/07/20 21:30 Albuterol [Proventil HFA] 0 gm INH Q4HR PRN 10/07/20 21:30 RT Post Treatment Assessment [RC] Click to Edit RT Pre-Treatment Assessment [RC] Click to Edit 10/07/20 21:31 Antiembolic Devices [RC] .PRN Antiembolic Devices [RC] 08,20 Communication Order [RC] DAILY Communication, Vaccine [RC] PER UNIT ROUTINE Height and Weight [RC] DAILY Intake and Output Strict [RC] ASDIRECTED Oxygen Therapy [RC] .PRN Pulse Oximetry [RC] ASDIRECTED Up With Assistance [RC] ASDIRECTED VTE/DVT Education [RC] PER UNIT ROUTINE Vaccines to be Administered [RC] .PRN Vital Signs [RC] Q2H OCCULT BLOOD DIAGNOSTIC [OP] Stat Acetaminophen [TylenoL] 650 mg PO Q4H PRN Sodium Chloride 0.9% [Saline Flush] 10 ml FLUSH Q12HR PRN Temazepam [Restoril] 15 mg PO BEDTIME PRN Antiembolic Hose [OM.PC] Routine DVT/VTE Prophylaxis Reflex [OM.PC] Routine GM Immunization Reflex [OM.PC] Click to Edit 10/07/20 21:41 Thiamine [Vitamin B-1] 100 mg PO BEDTIME 10/07/20 21:42 LORazepam [Ativan] 1 mg PO Q4H PRN 10/07/20 21:45 H PYLORI STOOL ANTIGEN [MREF] ONETIME Lactated Ringers [Ringers, Lactated] 1,000 ml IV ASDIRECTED 10/08/20 05:11 EKG Documentation Completion [RC] ASDIRECTED 10/08/20 Breakfast Heart Healthy Diet [DIET] Levothyroxine [Synthroid] 50 mcg PO ACBREAKFAST 10/08/20 08:00 Omeprazole 20 mg PO DAILY amLODIPine [Norvasc] 5 mg PO DAILY norgestimate-ethinyl estradioL [Irma 0.25-0.035 mg Tablet] 1 tab PO DAILY 10/08/20 08:30 Isosorbide Mononitrate [Imdur] 60 mg PO DAILY Labetalol [Normodyne] 100 mg PO BID 10/08/20 13:00 CK W CKMB [CHEM] Routine LACTATE SEPSIS W/ REFLEX [CHEM] Stat TROPONIN I [CHEM] Routine 10/08/20 18:00 Magnesium Oxide 400 mg PO BID 10/08/20 20:00 cefTRIAXone [Rocephin] 1 gm Sodium Chloride 0.9% [Normal Saline] 100 ml IV Q12H 10/09/20 05:11 CBC WITH AUTO DIFF [HEME] Routine COMPREHENSIVE METABOLIC PN,CMP [CHEM] Routine - Assessment Assessment:: As above - Plan Plan:: As above. Extensive precautions were given to the patient, who is in agreement with the treatment plan. Jackie naik provider assumes care in the a.m. Depending on her clinical course she may need to be changed to acute care status.
[2020-10-08] MEDS: Folic Acid 1 MG Tab PO SCH (12:17)
[2020-10-08] MEDS ORDERED: Metoprolol Succinate 50 MG Tab.ER PO SCH (18:00)
[2020-10-08] MEDS: Magnesium Oxide 400 MG Tab PO SCH (18:04)
[2020-10-08] MEDS: cefTRIAXone 1 GM in Sodium Chloride 0.9% 100 ML IV SCH (20:15)
[2020-10-08] MEDS: Thiamine 100 MG Tab PO SCH (20:15)
[2020-10-09] MEDS: Lactated Ringers 1,000 ML IV SCH (02:53)
[2020-10-09] MEDS: cefTRIAXone 1 GM in Sodium Chloride 0.9% 100 ML IV SCH (07:33)
[2020-10-09] MEDS: Labetalol 100 MG Tab PO SCH (07:33)
[2020-10-09] MEDS: Isosorbide Mononitrate 30 MG Tab.ER PO SCH (07:34)
[2020-10-09] MEDS: amLODIPine 5 MG Tab PO SCH (07:35)
[2020-10-09] MEDS: Levothyroxine 50 MCG Tab PO SCH (07:35)
[2020-10-09] MEDS: OMEPRAZOLE PO SCH (07:35)
[2020-10-09] MEDS: Folic Acid 1 MG Tab PO SCH (07:35)
[2020-10-09] MEDS: Magnesium Oxide 400 MG Tab PO SCH (07:35)
[2020-10-09 08:16] LABS: CHLORIDE,CL 103 mmol/L (98-107); SODIUM,NA 139 mmol/L (136-145)
--- NOTE | 2020-10-09 10:02 | PCM.DCSUM1 ---
Discharge Summary - Hospital Course Free Text/Narrative:: Pt stable currently Will be discharged and continued on Labetalol 100 mg BID and Synthroid 50 mcg daily and follow up in clinic Brief History: Pt admitted with multiple medical problems Atypical chest pain, uncontrolled HTN, elevated lactic acid and abnormal electrolytes Diagnosis: Stroke: No - Discharge Data Discharge Date: 10/09/20 Discharge Disposition: Home, Self-Care 01 Condition: Good - Referral to Home Health Primary Care Physician: PCP None - Discharge Diagnosis/Problem(s) (1) Chest pain SNOMED Code(s): 53394389 ICD Code: R07.9 - CHEST PAIN, UNSPECIFIED Status: Acute Priority: High Current Visit: Yes Onset Date: 10/07/20 Problem Details: Questionable anterior wall cardiac ischemia versus false lead placement, etc. Negative work- up for acute VA to this point with no chest pain or anginal type symptoms since placement in observation status. Her blood pressures continue to be under moderately poor control. Note initial atypical chest pain prior to emergency room evaluation with chest pain protocol not initiated upon patient's arrival secondary to absence of symptoms at time of my exam. Cardiology consultations depending on her clinical course. Sublingual nitroglycerin was used for blood pressure control with excellent results. Note moderate tachycardia with history of alcohol abuse, anxiety, etc. as per emergency room note with overall good results with 2.5 mg of IV Lopressor initially with subsequent requirement of oral Lopressor and change to Normodyne. Qualifiers: Chest pain type: precordial pain Qualified Code(s): R07.2 - Precordial pain (2) Hypothyroidism (acquired) SNOMED Code(s): 276563193 ICD Code: E03.9 - HYPOTHYROIDISM, UNSPECIFIED Status: Acute Priority: High Current Visit: Yes Onset Date: 10/07/20 Problem Details: Elevated TSH. Initiate low-dose Synthroid after admission with TSH to be repeated by her regular provider in about 4 weeks. (3) Lactic acid increased SNOMED Code(s): 82562060 ICD Code: E87.2 - ACIDOSIS Status: Acute Priority: High Current Visit: Yes Onset Date: 10/07/20 Problem Details: Lactic acid level continues to be increased in spite of aggressive IV hydration. IV Rocephin therapy initiated on 10/08, although no leukocytosis or fever to this point. Lactic acid protocol and order set was initiated. Blood cultures x2 were collected. No evidence of pneumonia by chest x-ray. UA also ordered with no direct evidence of infection, although urine specimen set up for culture and sensitivity. (4) Mixed anxiety depressive disorder SNOMED Code(s): 068712014 ICD Code: F41.8 - OTHER SPECIFIED ANXIETY DISORDERS Status: Acute Priority: High Current Visit: Yes Problem Details: Moderate control based on today's exam. Note alcohol abuse history during the last couple of years with no DTs to this point. Close follow-up by regular provider at discharge with consideration of alcohol treatment, counseling for her anxiety depression, etc.. (5) Asthma SNOMED Code(s): 728991248 ICD Code: J45.909 - UNSPECIFIED ASTHMA, UNCOMPLICATED Status: Chronic Priority: Medium Current Visit: Yes Problem Details: No recent fever or bronchitic type symptoms despite elevated lactic acid level as above. No bronchitis or pneumonia by clinical exam or today's chest x-ray. Observe for now. Qualifiers: Asthma severity: mild Asthma persistence: intermittent Asthma complication type: uncomplicated Qualified Code(s): J45.20 - Mild intermittent asthma, uncomplicated (6) Hypertension SNOMED Code(s): 10677626 ICD Code: I10 - ESSENTIAL (PRIMARY) HYPERTENSION Status: Chronic Priority: High Current Visit: Yes Problem Details: Blood pressures continue to be under poor control in spite of aggressive medical therapy. Further medication adjustments on 10/08, including more aggressive oral Normodyne therapy. Hypertension recently under poor control and somewhat refractory to therapy despite aggressive treatment in our emergency room prior and also by her regular providers. Strong anxiety component with no evidence of DTs, although oral Ativan was initiated shortly after admission. IV Normodyne was given shortly after placement in observation status with oral and IV Lopressor given in the emergency room as above. Qualifiers: Hypertension type: essential hypertension Qualified Code(s): I10 - Essential (primary) hypertension - Patient Instructions Diet: Regular Diet as Tolerated - Discharge Plan *PRESCRIPTION DRUG MONITORING PROGRAM REVIEWED*: Not Applicable *COPY OF PRESCRIPTION DRUG MONITORING REPORT IN PATIENT CHRISTOPHER: Not Applicable Home Medications: Home Meds Albuterol Sulfate [Albuterol Sulfate Hfa] 2 puff INH Q4HR PRN 09/12/19 [History] Omeprazole 20 mg PO DAILY 10/07/20 [History] amLODIPine [Norvasc] 5 mg PO DAILY 10/07/20 [History] norgestimate-ethinyl estradioL [Irma 0.25-0.035 mg Tablet] 1 tab PO DAILY 10/07/20 [History] Oxygen Therapy Mode: Room Air Forms: ED Department Discharge Referrals: PCP,None [Primary Care Provider] - - Discharge Summary/Plan Comment DC Time >30 min.: No Discharge Summary/Plan Comment: Follow up in clinic in 48 hours for recheck - General Info Date of Service: 10/09/20 Functional Status: Reports: Pain Controlled - Review of Systems General: Reports: No Symptoms HEENT: Reports: No Symptoms Pulmonary: Reports: No Symptoms Cardiovascular: Reports: Chest Pain Gastrointestinal: Reports: No Symptoms Musculoskeletal: Reports: No Symptoms Skin: Reports: No Symptoms Neurological: Reports: No Symptoms Psychiatric: Reports: No Symptoms - Patient Data Vitals - Most Recent: Last Vital Signs Temp 97.6 F 10/09/20 07:25 Pulse 99 10/09/20 07:33 Resp 20 10/09/20 07:25 BP 153/97 H 10/09/20 07:35 Pulse Ox 99 10/09/20 07:25 Weight - Most Recent: 260 lb I&O - Last 24 hours: Intake & Output 10/08/20 10/09/20 10/09/20 18:59 02:59 10:59 Intake Total 800 500 Output Total 100 200 Balance 700 -200 500 Lab Results - Last 24 hrs: Laboratory Results - last 24 hr 10/08/20 10/08/20 10/08/20 Range/Units 12:57 12:57 17:06 WBC (4.0-10.2) K/uL RBC (3.77-5.09) M/uL Hgb (11.7-15.5) g/dL Hct (34.0-46.0) % MCV (84.0-98.0) fL MCH (28.2-33.3) pg MCHC (31.7-36.0) g/dL RDW (11.2-14.1) % Plt Count (150-350) K/uL Neut % (Auto) (45.0-80.0) % Lymph % (Auto) (10.0-50.0) % [place] % (Auto) (2.0-14.0) % Eos % (Auto) (0.0-5.0) % Baso % (Auto) (0.0-2.0) % Neut # (Auto) (1.40-7.00) K/uL Lymph # (Auto) (0.50-3.50) K/uL [place] # (Auto) (0.00-1.00) K/uL Eos # (Auto) (0.00-0.50) K/uL Baso # (Auto) (0.00-0.20) K/uL Sodium (136-145) mmol/L Potassium (3.5-5.1) mmol/L Chloride (98-107) mmol/L Carbon Dioxide (21.0-32.0) mmol/L BUN (7-18) mg/dL Creatinine (0.51-1.17) mg/dL Est Cr Clr Drug Dosing mL/min Estimated GFR (MDRD) mL/min Glucose (70-99) mg/dL Lactic Acid 4.6 H 2.3 H (0.4-2.0) mmol/L Calcium (8.5-10.1) mg/dL Magnesium (1.8-2.4) mg/dL Total Bilirubin (0.2-1.0) mg/dL AST (15-37) U/L ALT (12-78) U/L Alkaline Phosphatase (46-116) IU/L Creatine Kinase 58 (26-308) U/L Creatine Kinase Index 0.9 (0.0-2.5) % CK-MB (CK-2) 0.50 (0.00-3.60) ng/mL Troponin I 0.000 (0.000-0.056) ng/mL Total Protein (6.4-8.2) g/dL Albumin (3.4-5.0) g/dL Ethyl Alcohol (0.000-0.080) g/dL 10/08/20 10/08/20 10/09/20 Range/Units 21:06 21:06 07:39 WBC 6.2 (4.0-10.2) K/uL RBC 2.79 L (3.77-5.09) M/uL Hgb 10.4 L D (11.7-15.5) g/dL Hct 31.6 L (34.0-46.0) % MCV 113.3 H D (84.0-98.0) fL MCH 37.3 H (28.2-33.3) pg MCHC 32.9 (31.7-36.0) g/dL RDW 12.6 (11.2-14.1) % Plt Count 198 D (150-350) K/uL Neut % (Auto) 54.6 (45.0-80.0) % Lymph % (Auto) 35.0 (10.0-50.0) % [place] % (Auto) 8.3 (2.0-14.0) % Eos % (Auto) 1.8 (0.0-5.0) % Baso % (Auto) 0.3 (0.0-2.0) % Neut # (Auto) 3.36 (1.40-7.00) K/uL Lymph # (Auto) 2.15 (0.50-3.50) K/uL [place] # (Auto) 0.51 (0.00-1.00) K/uL Eos # (Auto) 0.11 (0.00-0.50) K/uL Baso # (Auto) 0.02 (0.00-0.20) K/uL Sodium (136-145) mmol/L Potassium (3.5-5.1) mmol/L Chloride (98-107) mmol/L Carbon Dioxide (21.0-32.0) mmol/L BUN (7-18) mg/dL Creatinine (0.51-1.17) mg/dL Est Cr Clr Drug Dosing mL/min Estimated GFR (MDRD) mL/min Glucose (70-99) mg/dL Lactic Acid 2.1 H (0.4-2.0) mmol/L Calcium (8.5-10.1) mg/dL Magnesium (1.8-2.4) mg/dL Total Bilirubin (0.2-1.0) mg/dL AST (15-37) U/L ALT (12-78) U/L Alkaline Phosphatase (46-116) IU/L Creatine Kinase (26-308) U/L Creatine Kinase Index (0.0-2.5) % CK-MB (CK-2) (0.00-3.60) ng/mL Troponin I (0.000-0.056) ng/mL Total Protein (6.4-8.2) g/dL Albumin (3.4-5.0) g/dL Ethyl Alcohol 0.004 (0.000-0.080) g/dL 10/09/20 10/09/20 Range/Units 07:39 07:39 WBC (4.0-10.2) K/uL RBC (3.77-5.09) M/uL Hgb (11.7-15.5) g/dL Hct (34.0-46.0) % MCV (84.0-98.0) fL MCH (28.2-33.3) pg MCHC (31.7-36.0) g/dL RDW (11.2-14.1) % Plt Count (150-350) K/uL Neut % (Auto) (45.0-80.0) % Lymph % (Auto) (10.0-50.0) % [place] % (Auto) (2.0-14.0) % Eos % (Auto) (0.0-5.0) % Baso % (Auto) (0.0-2.0) % Neut # (Auto) (1.40-7.00) K/uL Lymph # (Auto) (0.50-3.50) K/uL [place] # (Auto) (0.00-1.00) K/uL Eos # (Auto) (0.00-0.50) K/uL Baso # (Auto) (0.00-0.20) K/uL Sodium 139 (136-145) mmol/L Potassium 4.0 (3.5-5.1) mmol/L Chloride 103 (98-107) mmol/L Carbon Dioxide 24.4 (21.0-32.0) mmol/L BUN 7 (7-18) mg/dL Creatinine 0.65 (0.51-1.17) mg/dL Est Cr Clr Drug Dosing 115.24 mL/min Estimated GFR (MDRD) > 60 mL/min Glucose 88 (70-99) mg/dL Lactic Acid 1.9 (0.4-2.0) mmol/L Calcium 8.3 L (8.5-10.1) mg/dL Magnesium 1.9 (1.8-2.4) mg/dL Total Bilirubin 1.4 H (0.2-1.0) mg/dL AST 98 H (15-37) U/L ALT 45 (12-78) U/L Alkaline Phosphatase 53 (46-116) IU/L Creatine Kinase 73 (26-308) U/L Creatine Kinase Index 1.0 (0.0-2.5) % CK-MB (CK-2) 0.70 (0.00-3.60) ng/mL Troponin I 0.000 (0.000-0.056) ng/mL Total Protein 6.0 L (6.4-8.2) g/dL Albumin 2.9 L (3.4-5.0) g/dL Ethyl Alcohol (0.000-0.080) g/dL JAYDON Results - Last 24 hrs: Microbiology 10/07/20 20:16 Urine Culture - Final Urine, Clean Catch MIXED SUSANA DAY 2 10/08/20 21:03 Stool Occult Blood (JAYDON) - Final Stool / Feces 10/07/20 20:31 Aerobic Blood Culture - Preliminary Blood - Venous - Lab Draw NO GROWTH AFTER 1 DAY Anaerobic Blood Culture - Preliminary NO GROWTH AFTER 1 DAY 10/07/20 20:26 Aerobic Blood Culture - Preliminary Blood - Venous NO GROWTH AFTER 1 DAY Anaerobic Blood Culture - Preliminary NO GROWTH AFTER 1 DAY Med Orders - Current: Current Medications Acetaminophen (Acetaminophen 325 Mg Tab) 650 mg PO Q4H PRN PRN Reason: Pain Last Admin: 10/08/20 20:21 Dose: 650 mg Documented by: Albuterol (Albuterol 6.7 Gm Inhaler) 0 gm INH Q4HR PRN PRN Reason: Shortness of Breath Amlodipine Besylate (Amlodipine 5 Mg Tab) 5 mg PO DAILY [facility] Last Admin: 10/09/20 07:35 Dose: 5 mg Documented by: Folic Acid (Folic Acid 1 Mg Tab) 1 mg PO DAILY [facility] Last Admin: 10/09/20 07:35 Dose: 1 mg Documented by: Lactated Ringer's (Ringers, Lactated) 1,000 mls @ 125 mls/hr IV ASDIRECTED [facility] Last Admin: 10/09/20 02:53 Dose: 125 mls/hr Documented by: Ceftriaxone Sodium 1 gm/ (Sodium Chloride) 100 mls @ 200 mls/hr IV Q12H [facility] Last Admin: 10/09/20 07:33 Dose: 200 mls/hr Documented by: Isosorbide Mononitrate (Isosorbide Mononitrate 30 Mg Tab.Er) 60 mg PO DAILY [facility] Last Admin: 10/09/20 07:34 Dose: 60 mg Documented by: Labetalol HCl (Labetalol 100 Mg Tab) 100 mg PO BID [facility] Last Admin: 10/09/20 07:33 Dose: 100 mg Documented by: Levothyroxine Sodium (Levothyroxine 50 Mcg Tab) 50 mcg PO ACBREAKFAST [facility] Last Admin: 10/09/20 07:35 Dose: 50 mcg Documented by: Lorazepam (Lorazepam 1 Mg Tab) 1 mg PO Q4H PRN PRN Reason: Anxiety Last Admin: 10/08/20 13:40 Dose: 1 mg Documented by: Magnesium Oxide (Magnesium Oxide 400 Mg Tab) 400 mg PO BID [facility] Last Admin: 10/09/20 07:35 Dose: 400 mg Documented by: Non-Formulary Medication (Norgestimate-Ethinyl Estradiol [Irma 0.25-0.035 Mg Tablet]) 1 tab PO DAILY [facility] Omeprazole (Omeprazole) 20 mg PO DAILY [facility] Last Admin: 10/09/20 07:35 Dose: 20 mg Documented by: Sodium Chloride (Sodium Chloride 0.9% 10 Ml Syringe) 10 ml FLUSH ASDIRECTED PRN PRN Reason: Keep Vein Open Last Admin: 10/07/20 19:49 Dose: 10 ml Documented by: Sodium Chloride (Sodium Chloride 0.9% 10 Ml Syringe) 10 ml FLUSH Q12HR PRN PRN Reason: Keep Vein Open Temazepam (Temazepam 15 Mg Cap) 15 mg PO BEDTIME PRN PRN Reason: Insomnia Last Admin: 10/08/20 23:41 Dose: 15 mg Documented by: Thiamine HCl (Thiamine 100 Mg Tab) 100 mg PO BEDTIME [facility] Last Admin: 10/08/20 20:15 Dose: 100 mg Documented by: Discontinued Medications Ceftriaxone Sodium (Ceftriaxone 2 Gm Vial) 2 gm IVPUSH ONETIME ONE Stop: 10/08/20 08:14 Last Admin: 10/08/20 08:43 Dose: 2 gm Documented by: Famotidine (Famotidine 20 Mg/2 Ml Sdv) 40 mg IVPUSH ONETIME ONE Stop: 10/07/20 19:17 Last Admin: 10/07/20 19:39 Dose: 40 mg Documented by: Lactated Ringer's (Ringers, Lactated) 1,000 mls @ 999 mls/hr IV .BOLUS ONE Stop: 10/07/20 21:11 Last Admin: 10/07/20 20:13 Dose: 999 mls/hr Documented by: Magnesium Sulfate (Magnesium Sulfate In Water 4 Gm/100 Ml) 4 gm in 100 mls @ 25 mls/hr IV ONETIME ONE Stop: 10/08/20 01:34 Last Admin: 10/07/20 22:00 Dose: 25 mls/hr Documented by: Lactated Ringer's (Ringers, Lactated) 1,000 mls @ 999 mls/hr IV .BOLUS ONE Stop: 10/08/20 09:12 Last Admin: 10/08/20 08:45 Dose: 999 mls/hr Documented by: Labetalol HCl (Labetalol 20 Mg/4 Ml Syringe) 10 mg IVPUSH ONETIME ONE; Protocol Stop: 10/07/20 22:23 Last Admin: 10/07/20 23:01 Dose: 10 mg Documented by: Lorazepam (Lorazepam 1 Mg Tab) 1 mg PO ONETIME ONE Stop: 10/07/20 21:39 Last Admin: 10/07/20 22:01 Dose: 1 mg Documented by: Magnesium Oxide (Magnesium Oxide 400 Mg Tab) 800 mg PO ONETIME ONE Stop: 10/07/20 20:13 Last Admin: 10/07/20 20:23 Dose: 800 mg Documented by: Metoprolol Succinate (Metoprolol Succinate 50 Mg Tab.Er) 50 mg PO QPM OLGA Metoprolol Tartrate (Metoprolol Tartrate 5 Mg/5 Ml Sdv) 2.5 mg IVPUSH ONETIME ONE Stop: 10/07/20 19:17 Last Admin: 10/07/20 19:34 Dose: 2.5 mg Documented by: Metoprolol Tartrate (Metoprolol Tartrate 5 Mg/5 Ml Sdv) 2.5 mg IVPUSH ONETIME ONE Stop: 10/07/20 20:44 Last Admin: 10/07/20 21:10 Dose: 2.5 mg Documented by: Metoprolol Tartrate (Metoprolol Tartrate 50 Mg Tab) 25 mg PO ONETIME ONE Stop: 10/07/20 20:44 Last Admin: 10/07/20 21:08 Dose: 25 mg Documented by: Nitroglycerin (Nitroglycerin 0.4 Mg Tab.Sl) 0.4 mg SL ONETIME STA Stop: 10/08/20 19:51 Last Admin: 10/07/20 19:53 Dose: 0.4 mg Documented by: - Exam General: Reports: Alert, Oriented, No Acute Distress Neck: Reports: Supple Lungs: Reports: Decreased Breath Sounds Cardiovascular: Reports: Regular Rate, Regular Rhythm Extremities: Pedal Edema Neurological: Reports: No New Focal Deficit Psy/Mental Status: Reports: Alert, Normal Affect, Normal Mood
== END 2020-10-09 10:22 | disposition home or self-care (01) ==
LOC: LL.ED 19:05 → LL.MS 21:07
PROVIDERS: ADMIT Family Medicine; ATTEND Family Medicine
DX: R07.2 Precordial pain (principal); I10 Essential (primary) hypertension; R74.02 Elevation of levels of lactic acid dehydrogenase [LDH]; E03.9 Hypothyroidism, unspecified; E87.2 Acidosis; F41.8 Other specified anxiety disorders; J45.20 Mild intermittent asthma, uncomplicated; E83.42 Hypomagnesemia; D75.89 Other specified diseases of blood and blood-forming organs; R79.89 Other specified abnormal findings of blood chemistry; E66.9 Obesity, unspecified; Z68.44 Body mass index [BMI] 60.0-69.9, adult; Z20.822 Contact with and (suspected) exposure to COVID-19; Z88.8 Allergy status to other drugs, medicaments and biological substances; Z79.899 Other long term (current) drug therapy
CPT/HCPCS: 36415; 71045; 80053; 80061; 80307; 81001; 82247; 82248; 82272; 82550; 82553; 82607; 82728; 82746; 83036; 83540; 83550; 83605; 83735; 83880; 84443; 84484; 84550; 84703; 85025; 85379; 85610; 85730; 87040; 87086; 87804; 93005; 96365; 96366; 96367; 96374; 96375; 96376; 99217; 99220; 99225; 99285-25; A9270-GY; G0378; J0696; J3475; J3490; J7120; U0002

== ENCOUNTER 2021-07-02 22:40 | Inpatient (IN) | payer SELFPAY ==
[2021-07-02 23:29] LABS: CHLORIDE,CL 102 mmol/L (98-107); SODIUM,NA 140 mmol/L (136-145)
[2021-07-02] MEDS ORDERED: Iopamidol 755 Mg/ML 100 ML Bottle IVPUSH STA (23:57)
[2021-07-03] MEDS ORDERED: Albuterol 6.7 GM Inhaler INH PRN (02:03)
[2021-07-03] MEDS ORDERED: Polyethylene Glycol 3350 Powder 17 GM Packet PO PRN (02:07)
[2021-07-03] MEDS ORDERED: LORazepam 2 MG/ML SDV IVPUSH PRN (02:09)
[2021-07-03] MEDS: Morphine 2 MG/ML SYRINGE IVPUSH PRN ×2 (02:39→06:20)
[2021-07-03] MEDS: Heparin Sodium 5,000 Units/ML Vial SUBCUT SCH ×3 (02:40→18:01)
[2021-07-03] MEDS: Lactated Ringers 1,000 ML IV SCH ×2 (02:40→11:15)
[2021-07-03] MEDS: Ondansetron 4 MG/2 ML SDV IVPUSH PRN ×2 (02:40→23:32)
[2021-07-03] MEDS: oxyCODONE 5 MG Tab PO PRN ×3 (03:26→16:17)
[2021-07-03] MEDS: Ibuprofen 400 MG Tab PO PRN ×3 (05:36→19:35)
[2021-07-03] MEDS ORDERED: Non-Formulary Medication 1 Each (Amlodipine Besylate [Amlodipine Besylate] 10 MG Tablet) PO SCH (08:00)
[2021-07-03 08:37] LABS: ANION GAP 13.7 meq/L (7-15); CHLORIDE,CL 103 mmol/L (98-107); SODIUM,NA 139 mmol/L (136-145)
[2021-07-03] MEDS: Levothyroxine 50 MCG Tab PO SCH (09:31)
[2021-07-03] MEDS ORDERED: Losartan 50 MG Tab PO SCH (09:32)
[2021-07-03] MEDS ORDERED: Omeprazole 20 MG Cap.CR PO SCH (09:32)
[2021-07-03] MEDS ORDERED: amLODIPine 5 MG Tab PO SCH (09:33)
[2021-07-03] MEDS: Omeprazole 20 MG Cap.CR PO SCH (10:05)
[2021-07-03] MEDS: NORGESTIMATE ETHINYL ESTRADIOL PO SCH (10:05)
[2021-07-03] MEDS: amLODIPine 5 MG Tab PO SCH (10:06)
[2021-07-03] MEDS: Losartan 50 MG Tab PO SCH (10:07)
[2021-07-03] MEDS ORDERED: Iopamidol 755 Mg/ML 100 ML Bottle ONE (10:14)
[2021-07-03] MEDS ORDERED: Sodium Chloride 0.9% 1,000 ML IV SCH (19:45)
[2021-07-03] MEDS ORDERED: LORazepam 1 MG Tab PO ONE (19:54)
[2021-07-03] MEDS ORDERED: Metoprolol Succinate 50 MG Tab.ER PO ONE (23:13)
[2021-07-03] MEDS ORDERED: Metoprolol Tartrate 50 MG Tab PO ONE (23:23)
[2021-07-03] MEDS: Sodium Chloride 0.9% 1,000 ML IV SCH (23:33)
[2021-07-04] MEDS: oxyCODONE 5 MG Tab PO PRN ×3 (01:03→18:29)
[2021-07-04] MEDS: Heparin Sodium 5,000 Units/ML Vial SUBCUT SCH ×3 (01:14→18:25)
[2021-07-04] MEDS: Morphine 2 MG/ML SYRINGE IVPUSH PRN ×2 (01:23→06:19)
[2021-07-04] MEDS: Ibuprofen 400 MG Tab PO PRN ×2 (03:12→22:30)
[2021-07-04] MEDS: Sodium Chloride 0.9% 1,000 ML IV SCH ×2 (03:14→14:17)
[2021-07-04 07:49] LABS: CHLORIDE,CL 100 mmol/L (98-107); SODIUM,NA 137 mmol/L (136-145)
[2021-07-04 07:59] LABS: ANION GAP 20.5 meq/L (7-15)
[2021-07-04] MEDS: amLODIPine 5 MG Tab PO SCH (08:25)
[2021-07-04] MEDS: Levothyroxine 50 MCG Tab PO SCH (08:25)
[2021-07-04] MEDS: Ondansetron 4 MG/2 ML SDV IVPUSH PRN (08:25)
[2021-07-04] MEDS: Losartan 50 MG Tab PO SCH (08:26)
[2021-07-04] MEDS: Omeprazole 20 MG Cap.CR PO SCH (08:26)
[2021-07-04] MEDS: NORGESTIMATE ETHINYL ESTRADIOL PO SCH (08:27)
[2021-07-04] MEDS ORDERED: hydrALAZINE 10 MG Tab PO ONE ×2 (10:16→22:00)
[2021-07-04] MEDS ORDERED: oxyCODONE 5 MG Tab PO ONE (11:04)
[2021-07-04] MEDS: Pantoprazole 40 MG Vial IVPUSH SCH (14:09)
[2021-07-04] MEDS ORDERED: Sodium Chloride 0.9% 10 ML Syringe FLUSH PRN (14:15)
[2021-07-04] MEDS ORDERED: Sodium Chloride 0.9% 10 ML Syringe FLUSH SCH (16:00)
[2021-07-04] MEDS ORDERED: Sodium Chloride 0.9% 1,000 ML IV SCH (21:15)
[2021-07-05] MEDS: oxyCODONE 5 MG Tab PO PRN (01:24)
[2021-07-05] MEDS: Heparin Sodium 5,000 Units/ML Vial SUBCUT SCH ×2 (01:24→10:19)
[2021-07-05] MEDS: amLODIPine 5 MG Tab PO SCH (08:06)
[2021-07-05] MEDS: Ibuprofen 400 MG Tab PO PRN (08:07)
[2021-07-05] MEDS: Levothyroxine 50 MCG Tab PO SCH (08:07)
[2021-07-05] MEDS: Losartan 50 MG Tab PO SCH (08:07)
[2021-07-05] MEDS: NORGESTIMATE ETHINYL ESTRADIOL PO SCH (08:08)
[2021-07-05] MEDS: Pantoprazole 40 MG Vial IVPUSH SCH (08:08)
[2021-07-05 08:17] LABS: CHLORIDE,CL 104 mmol/L (98-107); SODIUM,NA 137 mmol/L (136-145)
[2021-07-05 08:18] LABS: ANION GAP 20.1 meq/L (7-15)
[2021-07-05] MEDS ORDERED: Hydrochlorothiazide 25 MG Tab PO SCH (10:00)
[2021-07-05] MEDS ORDERED: Polyethylene Glycol 3350 Powder 17 GM Packet PO SCH (10:00)
[2021-07-05] MEDS ORDERED: oxyCODONE 5 MG Tab PO PRN (10:00)
== END 2021-07-05 16:35 | disposition home or self-care (01) | DRG 896 ==
LOC: LL.ED 22:40 → LL.MS 07-03 01:52
PROVIDERS: ADMIT Hospitalist; ATTEND Hospitalist
DX: F10.230 Alcohol dependence with withdrawal, uncomplicated (principal); K85.20 Alcohol induced acute pancreatitis without necrosis or infection; Z68.41 Body mass index [BMI] 40.0-44.9, adult; I10 Essential (primary) hypertension; E66.01 Morbid (severe) obesity due to excess calories; E03.9 Hypothyroidism, unspecified; J45.909 Unspecified asthma, uncomplicated; F41.9 Anxiety disorder, unspecified; F32.A Depression, unspecified; G43.909 Migraine, unspecified, not intractable, without status migrainosus; R79.1 Abnormal coagulation profile; Z79.890 Hormone replacement therapy; Z79.899 Other long term (current) drug therapy; Z88.6 Allergy status to analgesic agent; Z90.89 Acquired absence of other organs; Z86.73 Personal history of transient ischemic attack (TIA), and cerebral infarction without residual deficits; Z86.16 Personal history of COVID-19
CPT/HCPCS: 36415; 71275; 76705; 80053; 80307; 82150; 83690; 83735; 84703; 85025; 85027; 85379; 85610; 86140; 99285; 99285-25; A9270-GY; C9113; J1644; J2270; J2405; J3475; J7030; J7120; Q9967